=== PATIENT | female | born 2000 | race Two or more races ===

== ENCOUNTER 2024-05-12 11:20 | Outpatient (REF) | payer SELFPAY ==
[2024-05-12 13:46] LABS: MANUAL DIFF FLAG NO
[2024-05-12 14:04] LABS: Basophils Absolute Auto 0.1 X10*3/uL (0.0-0.2); Basophils Percent Auto 0.8 % (0-2); Eosinophils Percent Auto 0.3 % (0-4); Hemoglobin 12.9 g/dl (12.0-16.0); Imm Gran Abs Auto 0.01 X10*3/uL (0.00-0.03); Imm Gran Pct Auto 0.1 % (0.0-0.4); Lymphocytes Absolute Auto 1.9 X10*3/uL (1.2-4.9); Lymphocytes Percent Auto 25.4 % (20-40); Mean Corpuscular HGB Conc 33.1 g/dl (31.0-35.0); Mean Corpuscular Hemoglobin 29.8 pg (27.0-33.0); Mean Corpuscular Volume 90.1 fL (80.0-98.0); Monocytes Absolute Auto 0.5 X10*3/uL (0.1-1.2); Monocytes Percent Auto 6.3 % (2-11); Neutrophils Absolute Auto 5.1 x10*3/uL (2.0-8.3); Neutrophils Percent Auto 67.1 % (45-73); Platelet Count 225 X10*3/uL (160-400); Red Blood Count 4.33 X10*6/uL (4.20-5.50); Red Cell Distribution Width 11.9 % (11.0-16.0); White Blood Count 7.5 X10*3/uL (4.8-10.8)
[2024-05-12 15:22] LABS: Alanine Aminotransferase 15 U/L (0-31); Albumin Level 4.2 g/dL (3.5-5.0); Alkaline Phosphatase 62 U/L (39-117); Anion Gap 11 (12-20); Aspartate Amino Transferase 20 U/L (5-31); Bilirubin Total 0.4 mg/dL (0.0-1.0); Blood Urea Nitrogen 12 mg/dL (9-16); Calcium 9.4 mg/dL (8.4-10.2); Carbon Dioxide 26 mmol/L (22-29); Chloride 107 mmol/L (96-108); Cholesterol 161 mg/dL (<200); Estimated Glomerular Filt Rate > 60; Glucose Random 91 mg/dL (60-115); HDL Cholesterol 49 mg/dL (>40); LDL Cholesterol Calculated 85 mg/dL (<100); Potassium 3.6 mmol/L (3.3-5.1); Sodium 140 mmol/L (135-145); TSH reflex Free T4 3.08 uIU/mL (0.32-4.0); Total Protein 7.6 g/dL (6.5-8.0); Triglycerides 138 mg/dL (<150); Vitamin D 25-OH Total 24.5 ng/mL (>30)
[2024-05-12 21:38] LABS: Estimated Average Glucose 100 mg/dL; Hemoglobin A1C 99.8378 umol/L; Hemoglobin A1c % 5.1 % (<6.0)
[2024-05-13 05:08] LABS: HIV AB/AG Nonreactive (Nonreactive); HIV Num 1 0.06 S/CO (0.00-0.99); ~HepC Num1 0.27 S/CO (0.00-0.79); ~Hepatitis C Antibody Nonreactive (Nonreactive)
--- OUTSIDE RECORDS SUMMARY | 2024-05-19 13:25 | XMS_ITS | Continuity of Care Document ---
Author Organization [employer] Address [address] [place] [address] Care Team Providers Care Traffic Workforce Representative Name Role Phone Jenni Cruz Unavailable Unavailable Allergies, Adverse Reactions, Alerts Substance Reaction Status Criticality No Known Allergies Active No Inform ation Medications Medication Instructions Dosage Effective Dates (start - stop) Status Comments Vitamin B-6 25 mg tablet Take 1 tab q8 hrs PRN for nause trying to combine times w Unisom - Active Unisom (doxylamine) 25 mg tablet Take 1 tablet q 12 hrs PRN for nausea - Active One Daily 27 mg iron-800 mcg tablet take 1 tablet by oral route every day 1 tablet - Active Mirena 20 mcg/24 hours (8 [...] AMP PROB Intake URINE TEST OFFICE/OUTPATIENT VISIT, [facility] Advance Directives Directive Yes / No Effective Date File Name No Information Encounters Encounter Description Practice Location Reason(s) For Visit Diagnoses Date Provider Providers Copied on Encounter [facility], [address] [place], [id number], [place] [facility] check (chief complaint) Encounter for test, result negativeIUD (intrauterine device) in placeEncounter for visitSVD (spontaneous vaginal delivery) 3 Mp Arteaga. [address] [facility], [place], [id number], [place]. tel:[phone] OFFICE/OUTPA TIENT VISIT, EST [facility], [address] [place], [id number], [place] [facility] IUD CHECK (chief complaint) Encounter for routine checking of intrauterine contraceptive device (IUD) 3 Dilia Ellis. [address] [facility], [place], [id number], [place]. tel:[phone] [facility], [address], [place], [id number], [place] [facility] Inpt No Information 3 Radha Vicente. [address] [facility], [address], [place], [id number], [place]. tel:[phone] OFFICE/OUTPA TIENT VISIT, [facility], [address], [place], [id number], [place] [facility] Encounter for supervision of normal first , third trimester 3 Mp Arteaga. [address] [facility], [place], [id number], [place]. tel:[phone] OFFICE/OUTPA TIENT VISIT, [facility], [address], [place], [id number], [place] [facility] routine (chief complaint) Encounter for supervision of normal first , third trimesterEncount er for other contraceptive management 3 Mp Arteaga. [address] [facility], [place], [id number], [place]. tel:[phone] OFFICE/OUTPA TIENT VISIT, [facility], [address], [place], [id number], [place] [facility] routine (chief complaint) Encounter for immunizationEnco unter for supervision of normal first , third trimester 3 Dilia Ellis. [address] [facility], [place], [id number], [place]. tel:[phone] OFFICE/OUTPA TIENT VISIT, [facility], [address], [place], [id number], [place] [facility] care in third trimesterEncount er for supervision of normal , unspecified, second trimester Mar-2 3 Tawanna Aguilar. [address] [facility], [place], [id number], [place]. tel:[phone] OFFICE/OUTPA TIENT VISIT, [facility], [address], [place], [id number], [place] [facility] routine (chief complaint) Encounter for supervision of normal first , unspecified trimesterPrenata l care in second trimester 3 Nida Montanez. [address] [facility], [facility] [address], [place], [place], [id number], [place]. tel:[phone] OFFICE/OUTPA TIENT VISIT, [facility], [address], [place], [id number], [place] [facility] routine (chief complaint) Encounter for supervision of normal first , unspecified trimester 3 Nida Montanez. [address] [facility], [place] [address], [place], [id number], [place]. tel:[phone] OFFICE/OUTPA TIENT VISIT, [facility], [address], [place], [id number], [place] [facility] Encounter for supervision of normal first , unspecified trimester 3 Tawanna Aguilar. [address] [facility], [place], [id number], [place]. tel:[phone] OFFICE/OUTPA TIENT VISIT, [facility], [address], [place], [id number], [place] [facility] care, first trimester 2 Tawanna Aguilar. [address] [facility], [place], [id number], [place]. tel:[phone] [facility], [address], [place], [phone], [place] [facility] New Ob Initial Visit (chief complaint) Encounter for test, result positiveEncounte r for supervision of normal first in first trimester 2 Jered Mcqueen. [address] [facility], [place], [address], [place]. tel:[phone] OFFICE/OUTPA TIENT VISIT, [facility], [address] [place] [address], [place], [id number], [place] [facility] Adult test (chief complaint) Encounter for test, result positive 2 Dipti Castillo. [address] [facility], [place], [id number], [place]. 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 Reason For Referral Reason For Referral No Information Plan Of Treatment Date Type Action Status Goal Unhealthy drug u se screening. Due on due Goal HIV Screen. Due on due Goal PAP. Due on due Goal Tdap due Goal HPV (1st). Due on due Goal Influenza Vaccin e. Due on due Goal Hepatitis C anti body. Due on due Goal LINK WIRE FABRIC MACHINE OPERATOR exam. Due on due Goal HIV Consented. Due on due Goal Depression scree flaquito. Due on due Goal Hepatitis C scre ening. Due on due Goal HIV Consented. Due on due Goal LINK WIRE FABRIC MACHINE OPERATOR exam. Due on due Goal HPV (1st). Due on due Goal Unhealthy drug u se screening. Due on due Goal HIV Screen. Due on due Goal Hepatitis C anti body. Due on due Goal Depression scree flaquito. Due on due Goal Tdap due Goal Hepatitis C scre ening. Due on due Goal PAP. Due on due Goal Depression scree flaquito. Due on due Goal Hepatitis C anti body. Due on due Goal LINK WIRE FABRIC MACHINE OPERATOR exam. Due on due Goal PAP. Due on due Goal HIV Screen. Due on due Goal Unhealthy drug u se screening. Due on due Goal Tdap due Goal HPV (). Due on due Goal HIV Consented. Due on due Goal Hepatitis C scre ening. Due on due Goal Depression scree flaquito. Due on due Goal HIV Consented. Due on due Goal Tdap due Goal Hepatitis C scre ening. Due on due Goal PAP. Due on due Goal LINK WIRE FABRIC MACHINE OPERATOR exam. Due on due Goal Hepatitis C anti body. Due on due Goal Unhealthy drug u se screening. Due on due Goal HIV Screen. Due on due Goal HPV (). Due on due Goal Depression scree flaquito. Due on due Goal HIV Consented. Due on due Goal Unhealthy drug u se screening. Due on due Goal HPV (1st). Due on due Goal LINK WIRE FABRIC MACHINE OPERATOR exam. Due on due Goal Hepatitis C scre ening. Due on due Goal Tdap due Goal PAP. Due on due Goal Hepatitis C anti body. Due on due Goal HIV Screen. Due on due Goal Tdap. Due on due Goal HIV Consented. Due on due Goal HPV (). Due on due Goal PAP. Due on due Goal Hepatitis C anti body. Due on due Goal HIV Screen. Due on due Goal Hepatitis C scre ening. Due on due Goal Unhealthy drug u se screening. Due on due Goal LINK WIRE FABRIC MACHINE OPERATOR exam. Due on due Goal Depression scree flaquito. Due on due Goal Hepatitis C scre ening. Due on due Goal HIV Screen. Due on due Goal Hepatitis C anti body. Due on due Goal HIV Consented. Due on due Goal Tdap. Due on due Goal Depression scree flaquito. Due on due Goal LINK WIRE FABRIC MACHINE OPERATOR exam. Due on due Goal PAP. Due on due Goal HPV (). Due on due Goal Unhealthy drug u se screening. Due on due Goal Unhealthy drug u se screening. Due on due Goal Hepatitis C scre ening. Due on due Goal Depression scree flaquito. Due on due Goal PAP. Due on due Goal HIV Consented. Due on due Goal Hepatitis C anti body. Due on due Goal HIV Screen. Due on due Goal HPV (1st). Due on due Goal LINK WIRE FABRIC MACHINE OPERATOR exam. Due on due Goal Tdap. Due on due Goal LINK WIRE FABRIC MACHINE OPERATOR exam. Due on due Goal Colonoscopy. Due on 023 due Goal Unhealthy drug u se screening. Due on due Goal PAP. Due on due Goal Depression scree flaquito. Due on due Goal CT-Colonography. Due on due Goal HIV Screen. Due on due Goal Tdap. Due on due Goal HPV (). Due on due Goal FOBT. Due on due Goal HIV Consented. Due on due Goal FIT. Due on due Goal Hepatitis C scre ening. Due on due Goal FIT-DNA. Due on due Goal HIV Screen. Due on due Goal Unhealthy drug u se screening. Due on due Goal HIV Consented. Due on due Goal FOBT. Due on due Goal CT-Colonography. Due on due Goal Tdap. Due on due Goal Hepatitis C scre ening. Due on due Goal Depression scree flaquito. Due on due Goal FIT-DNA. Due on due Goal HPV (). Due on due Goal PAP. Due on due Goal FIT. Due on due Goal Colonoscopy. Due on due Goal LINK WIRE FABRIC MACHINE OPERATOR exam. Due on due Goal CT-Colonography. Due on due Goal FOBT. Due on due Goal HIV Consented. Due on due Goal Unhealthy drug u se screening. Due on due Goal FIT-DNA. Due on due Goal LINK WIRE FABRIC MACHINE OPERATOR exam. Due on due Goal Hepatitis C scre ening. Due on due Goal Colonoscopy. Due on due Goal Depression scree flaquito. Due on due Goal HPV (1st). Due on due Goal Tdap. Due on due Goal FIT. Due on due Goal PAP. Due on due Goal Hepatitis C scre ening. Due on due Goal LINK WIRE FABRIC MACHINE OPERATOR exam. Due on due Goal Depression scree flaquito. Due on due Goal Colonoscopy. Due on [address]-Colonography. Due on due Goal HIV Screen. Due on 22 due Goal FIT. Due on due Goal PAP. Due on due Goal HIV Consented. Due on due Goal FIT-DNA. Due on due Goal FOBT. Due on due Goal Tdap. Due on due Goal HPV (). Due on due Goal Unhealthy drug u se screening. Due on due Goal Influenza Vaccin e. Due on due Referral Ordered: OB US > OR = TO 14 WKS, SNGL FETUS ordered Referral Ordered: OB US NUCHAL MALISSA, FIRST TRIMESTER SINGLE ordered Patient Education Learning About Pregnanc y completed Future Order: Radiology Order OB US > OR = TO 14 WKS, SNGL FETUS ([id number]), Added on: New Future Order: Lab Order Panorama Test (NPT), Collected on: , Sent on: Sent Future Order: Radiology Order OB US NUCHAL MALISSA, FIRST TRIMESTER SINGLE ([id number]), Added on: New Future Order: Radiology Order OB US NUCHAL MALISSA, FIRST TRIMESTER SINGLE ([id number]), Added on: New Future Order: Lab Order Antibody Screen ([id number]), Appointment on: , Sent on: Sent Future Order: Lab Order Type and Screen ([id number]), Appointment on: , Sent on: Sent Future Order: Lab Order Hep B Simpson rface Ag ([id number]), Appointment on: , Sent on: Sent Future Order: Lab Order RPR, Rfx Qn RPR/Confirm TP-PA ([id number]), Appointment on: , Sent on: Sent Future Order: Lab Order CBC ([id number]), Appointment on: , Sent on: Sent Future Order: Lab Order HIV Scre en ([id number]), Appointment on: , Sent on: Sent Future Order: Lab Order Varicell a-Zoster Ab, IgG ([id number]), Appointment on: , Sent on: Sent Future Order: Lab Order HGB Elec trophoresis ([id number]), Appointment on: , Sent on: Sent Future Order: Lab Order Rubella Immunity ([id number]), Appointment on: , Sent on: Sent History [...] well, she denies depressions/p Mirena placement @ [facility] UTD and WNL. IUD CHECK 10/21/2022, d oing well. No complications w/ delivery. Had Mirena placed PP. Requesting for strings to be trimmed. routine Apr-05-2023 routine routine routine New Ob Initial Visit test LMP was 02/09/20 22. Client was not taking control pills at or around the time of her LMP. Context: not confirmed by testing. This is first . Pertinent negatives include nausea, spotting, urinary difficulty, vaginal discharge, vomiting. Functional Status Date Functional Assessmen t Pain Score 0/10 Instructions Date Instruction Additional Infor mation denies PMH, no meds, not on contraceptionstart vitaminsdo not forget to drink water and restGYN appointment Related to Encounter for test, result positive Assessments Type Assessment Date assessment Encounter for test, re sult negative assessment IUD (intrauterine device) in mat ce assessment Encounter for visit J assessment (spontaneous vaginal deliver y) Mental Status Date Cognitive Assessment Orientation - [place] ed to time, place, person, situation. Patient Care Teams Name Effective Dates (start - stop) Status Members No Information
== END 2024-05-12 11:21 | disposition home or self-care (01) ==
LOC: HO.HHCL 11:20
PROVIDERS: Visit Provider Internal Medicine
DX: F41.8 Other specified anxiety disorders (principal)
CPT/HCPCS: 36415; 80053; 80061; 82306; 83036; 84443; 85025; 86803; 87389

== ENCOUNTER 2024-08-05 | Outpatient (REF) | payer SELFPAY ==
--- OUTSIDE RECORDS SUMMARY | 2024-08-19 14:34 | XMS_ITS | Encounter Summary ---
Author Organization [employer] Address [address] [place] [address] Care Team Providers Care Whizzer Hand Name Role Phone Anna No MD [...] documented as of this encounter Care Teams Whizzer Hand Relationship Specialty Start Date End Date Anna No MD [address] [place] [address] PCP - General Internal Medicine 05/12/24 documented as of this encounter
--- OUTSIDE RECORDS SUMMARY | 2024-08-19 14:34 | XMS_ITS | Encounter Summary ---
Author Organization [employer] Address [address] [place] [address] Care Team Providers Care Furniture Cleaner Name Role Phone Anna No MD Primary Care Provide r Reason for Visit * Reason Onset Date Comments Med Refill 08/13/2024 Encounter Details Date Type Department Care Team ([facility] st Contact Info) Description 08/13/2024 Refill [facility] [address] [place] [address] Anna No MD [address] [place] [address] Anxiety with depression Social History Tobacco Use [...] documented as of this encounter Care Teams Furniture Cleaner Relationship Specialty Start Date End Date Anna No MD [address] [place] [address] PCP - General Internal Medicine 05/12/24 documented as of this encounter
--- OUTSIDE RECORDS SUMMARY | 2024-08-19 14:34 | XMS_ITS | Encounter Summary ---
Author Organization [employer] Address [address] [facility] [address] [place] [address] Care Team Providers Care Juvenile Correctional Officer Name Role Phone Anna No MD Primary Care Provide r Reason for Visit * Reason Onset Date Comments Med Refill 08/05/2024 Encounter Details Date Type Department Care Team ([facility] st Contact Info) Description 08/05/2024 Refill [facility] MEDICINE [address] [place] [address] Anna No MD [address] [place] [address] Anxiety with depression Social History Tobacco Use [...] documented as of this encounter Care Teams Juvenile Correctional Officer Relationship Specialty Start Date End Date Anna No MD [address] [place] [address] PCP - General Internal Medicine 05/12/24 documented as of this encounter
--- OUTSIDE RECORDS SUMMARY | 2024-08-19 14:34 | XMS_ITS | Encounter Summary ---
Author Organization [employer] Address [address] [facility] [address] [place] [address] Care Team Providers Care Credit Director Name Role Phone Anna No MD Primary [...] documented as of this encounter Care Teams Credit Director Relationship Specialty Start Date End Date Anna No MD [address] [place] [address] PCP - General Internal Medicine 05/12/24 documented as of this encounter
--- OUTSIDE RECORDS SUMMARY | 2024-08-19 14:34 | XMS_ITS | Clinical Summary ---
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 30 tablet 1 06/17/19 25 025 Discontinued(Re order (will not trigger notification to Pharmacy)) hydrOXYzine HCl (Atarax) 25 MG tabletIndicati ons:Anxiety with depression TAKE 1 TABLET BY MOUTH EVERY 8 HOURS NEEDED FORE ITCHING FOR UP TO 20 DAYS 30 tablet 1 08/05/19 25 025 Discontinued(Re order (will not trigger [...] & Plan (05/13/2024 4:46 PM EST): Pending Pumping Supervisor referral Pelvic pain 05/13/2024 Assessment & Plan (05/13/2024 4:44 PM EST): Pumping Supervisor referral will be on hod until her insurance is fix Cervical cancer screening 05/13/2024 Encounters * This document contains information received from the source organization and may not represent a complete record from that organization. Date Type Department Care Team Description 08/18/[address] [address] Sam Rod CNM Lab Orders 08/13/[address] [address] Anna No MD Anxiety with depression 08/05/2024 11:00 AM EST Procedure Visit [address] [address] Sam Rod CNM Cervical cancer screening (Primary Dx); Checking of intrauterine device; Screening examination for venereal disease 08/05/2024 Travel 08/05/[address] [address] Anna No MD Anxiety with depression 07/29/2024 Travel 07/01/2024 11:15 AM EST Telemedicine [address] [address] Anna No MD Anxiety with depression (Primary Dx); IUD check up; Cervical cancer screening 07/01/2024 Travel 06/17/2024 Orders Only [address] [address] Anna No MD Anxiety with depression 06/10/2024 Travel from Last 3 Months Family History Medical [...] of 3 - 19+ 3-dose series) 11/17/2018 COVID-19 Vaccine ( - 2023-2 5 season) 2024 Influenza Vaccine (#1) 2024 Depression Monitoring (PHQ-9) 12/15/2024, 06/17/2024 SDOH Screening 04/28/2025 04/28/2024 Alcohol/Substance Use Screening 05/12/2025 05/12/2024 Depression Screening 06/17/2025 06/17/2024, 06/17/2024 Family Planning (PISQ) 08/05/2025 08/05/2024 Tobacco Screening 08/05/2025 08/05/2024 Pap Smear 08/05/2027 08/05/2024 Zoster Vaccines (1 of 2) 11/17/2049 [...] Procedure Name Priority Date/Time Associated Diagnosis Comments HEPATITIS B SURFACE ANTIGEN, EIA Routine 08/05/2024 12:28 PM EST Screening examination for venereal disease HEPATITIS B SURFACE ANTIBODY, QUALITATIVE Routine 08/05/2024 12:28 PM EST Screening examination for venereal disease HEPATITIS B CORE AB TOTAL Routine 08/05/2024 12:28 PM EST Screening examination for venereal disease SYPHILIS SCREEN Routine 08/05/2024 12:25 PM EST Screening examination for venereal disease DRUG MONITOR, PANEL 1, SCREEN, URINE Routine 08/05/2024 12:25 PM EST Anxiety with depression CHLAMYDIA/N. GONORRHOEAE AND T. VAGINALIS RNA, QUAL,TMA Routine 08/05/2024 11:23 AM EST Screening examination for venereal disease PAP SMEAR Routine 08/05/2024 12:00 AM EST Cervical cancer screening HEPATITIS C AB W/REFL TO HCV RNA, QN, PCR Routine 05/12/2024 11:24 AM EST Anxiety with depression HIV 1/2 ANTIGEN/ANTIBODY, FOURTH GENERATION W/RFL Routine 05/12/2024 11:24 AM EST Anxiety with depression from Last 3 Months or Most Recently Relevant to Health Maintenance Results * Hepatitis B surface antigen, EIA (08/05/2024 12:28 PM EST) Hepatitis B Surface Ag Negative Negative [facility] Blood Venous blood specimen / Unknown 08/05/2024 12:28 PM EST 08/05/2024 1:38 PM EST us Sam MILLS LAB BLOOD ORDERABLES Agatha rosetta Result [facility] [address] [place] [phone] * Hepatitis B Core Antibody, Total (08/05/2024 12:28 PM EST) Pathologist [facility] Hepatitis B Core Antibody Nonreactive Nonreactive [facility] Blood Venous blood specimen / Unknown 08/05/2024 12:28 PM EST 08/05/2024 1:38 PM EST [facility] LAB BLOOD ORDERABLES Agatha l Result Performing Organization Address City/[facility]/ZIP Co de Phone Number [facility] [address] [place] [phone] * Hepatitis B Surface Antibody, Qualitative (08/05/2024 12:28 PM EST) Pathologist [facility] ~Hepatitis B Surface Antibody REACTIVE Nonreactive [facility] Comment:REACTIVE: > 11.99 mI U/mL Blood Venous blood specimen / Unknown 08/05/2024 12:28 PM EST 08/05/2024 1:38 PM EST [facility] LAB BLOOD ORDERABLES Agatha l Result Performing Organization Address [facility] Co de Phone Number [facility] [address] [place] [phone] * Syphilis Screen (08/05/2024 12:25 PM EST) [facility] Syphilis Screen Nonreactive Nonreactive [facility] Blood Venous blood specimen / Unknown 08/05/2024 12:25 PM EST 08/05/2024 1:38 PM EST [facility] LAB BLOOD ORDERABLES Agatha l Result Performing Organization Address City/[facility]/ZIP Co de Phone Number [facility] [address] [place] [phone] * Drug Monitoring, Panel 1, Screen, Urine (08/05/2024 12:25 PM EST) Opiate Screen Urine Not Detected Not Detect [facility] Comment:Opiate cut-off is 30 0 ng/mL.Positive results are unconfirmed and should not be used fornon-medical purposes. Barbiturates, Urine Not Detected Not Detect [facility] Comment:Barbiturate cut-off is 200 ng/mL.Positive results are unconfirmed and should not be used fornon-medical purposes. Phencyclidine Screen Urine Not Detected Not Detect [facility] Comment:Phencyclidine cut-of f is 25 ng/mL.Positive results are unconfirmed and should not be used fornon-medical purposes. Amphetamine Screen Urine Not Detected Not Detect [facility] Comment:Amphetamine cut-off is 1000 ng/mL.Positive results are unconfirmed and should not be used fornon-medical purposes. Benzodiazepines Screen Urine Not Detected Not Detect [facility] Comment:Benzodiazepine cut-o ff is 200 ng/mL.Positive results are unconfirmed and should not be used fornon-medical purposes. Cocaine Screen Urine Not Detected Not Detect [facility] Comment:Cocaine cut-off is 3 00 ng/mL.Positive results are unconfirmed and should not be used fornon-medical purposes. Cannabinoid Screen Urine Not Detected Not Detect [facility] Comment:Cannabinoid cut-off is 50 ng/mL.Positive results are unconfirmed and should not be used fornon-medical purposes. Methadone Screen, Urine Not Detected Not Detect ng/mL [facility] Comment:Methadone cut-off is 300 ng/mL.Positive results are unconfirmed and should not be used fornon-medical purposes. FENTANYL URINE Not Detected Not Detect [facility] Comment:Fentanyl cut-off is 1 ng/mL.Positive results are unconfirmed and should not be used fornon-medical purposes. Oxycodone Urine Screen Not Detected Not Detect ng/mL [facility] Comment:Oxycodone cut-off is 100 ng/mL.Positive results are unconfirmed and should not be used fornon-medical purposes. Buprenorphine Screen Not Detected Not Detect ng/mL [facility] Comment:Buprenorphine cut-of f is 5 ng/mL.Positive results are unconfirmed and should not be used fornon-medical purposes. Urine (Urine, Random) 08/05/2024 12:25 PM EST 08/05/2024 1:20 PM EST Tai Santiagor PMHNP LAB URINE ORDERABLES Final Re sult [facility] [address] [place] [address] [phone] * STI testing add on (NG, CT, Trich) (08/05/2024 11:23 AM EST) Trichomonas (NAAT) NOT DETECTED [facility] Comment:REFERENCE RANGE: NOT DETECTEDThe analytical performance characteristics of thisassay, when used to test SurePath(TM) specimens have beendetermined by [employer]. The modifications havenot been cleared or approved by the FDA. This assay hasbeen validated pursuant to the CLIA regulations and isused for clinical purposes.For additional information, please refer tohttps://education.GainSpan/faq/AGU901(This link is being provided for information/educational purposes only.)For additional information, please refer tohttp://education.GainSpan/faq/Trichomonastma(This link is being provided for informational/educational purposes only.)THIS TEST PERFORMED AT:[employer] [address] [phone] DIRECTOR: CHAYO WOOTEN MD CTNG Ref Lab NOT DETECTED NOT DETECTED [facility] NG Ref Lab NOT DETECTED NOT DETECTED [facility] ThinPrep?? vial Cervix uteri structure / Unknown 08/05/2024 11:23 AM EST 08/05/2024 4:28 PM EST Narrative [facility] - 08/14/2024 1:14 PM EST Collection Date: [id number] by: BUDDY Espinal: Cervix Sam MILLS LAB CYTOLOGY ORDERABLES F inal Result [facility] [address] [place] [address] [phone] * Pap Smear (08/05/2024 12:00 AM EST) Swab Cervix uteri structure / Unknown 08/05/2024 08/06/2024 8:10 AM EST Narrative [facility] - 08/19/2024 1:58 PM EDT ----- ------- Name: Craig Power ? Age/Sex: 23/F ? : 2000 Unit#: [id number] ?? Attend Dr: SAM ROD CNM ?Re08/05/24 ?Status: REG REF ? Location: HO.LNP ?Disch: ? ----- ------- SPEC : [id number] ? RECD: 08/06/24-809 ? STATUS: ??SOUT ? REQ NUM: [id number] ? ANNAMARIE: 08/05/24-0000 ? SUBM DR: SAM ROD CNM ? ENTERED: ??08/06/24-829 ?SP TYPE: Pap Smr ?OTHR : ? ORDERED: ??Pap Smear ? Interpretation ?? Satisfactory for evaluation. ?? Negative for intraepithelial lesion or malignancy. ?Clinical Information LMP: IUD Previous PAP test: Other surgery: Other history: ? Material Received ?? ThinPrep-Cervical ----- ------- Signed (signature on file) STEVEN Joyce (ASCP) 08/19/24 1346 ? ----- ------- ? END OF REPORT ? Sam MILLS LAB CYTOLOGY ORDERABLES F inal Result Performing Organization Address [facility]/ZIP Co de Phone Number [facility] [address] [place] [address] [phone] * Hepatitis C Antibody with Reflex to HCV, RNA, Quantitative, Real-Time PCR (05/12/2024 11:24 AM EST) Hepatitis C Antibody Nonreactive Nonreactive [facility] Comment:Antibodies to HCV no t detected; does not exclude early acuteHCV infection. Blood Venous blood specimen / Unknown 05/12/2024 11:24 AM EST 05/12/2024 2:31 PM EST us Anna Castro MD LAB BLOOD ORDERABLES Final Result Performing Organization Address [facility] Co de Phone Number [facility] [address] [place] [address] [phone] * HIV-1/2 Antigen and Antibodies, Fourth Generation, with Reflexes (05/12/2024 11:24 AM EST) HIV AB/AG Nonreactive Nonreactive [facility] Comment:HIV-1 p24 Ag and/or HIV-1/HIV-2 Ab not detected.A test result that is nonreactive does not exclude thepossibility of exposure to or infection with HIV-1 and/orHIV-2. Nonreactive results in this assay for individualswith prior exposure to HIV-1 and/or HIV-2 may be due toantigen and antibody levels that are below the limit ofdetection of this assay.The [employer] HIV Ag/Ab Combo assay result andsupplemental assay results should be interpreted inconjunction with the patient's clinical presentation,history and other laboratory results. If the results areinconsistent with clinical evidence, additional testing issuggested to confirm the result. Blood Venous blood specimen / Unknown 05/12/2024 11:24 AM EST 05/12/2024 2:31 PM EST Anna Castro MD LAB BLOOD ORDERABLES Final Result [facility] [address] [place] [address] [phone] from Last 3 Months or Most Recently Relevant to Health Maintenance Insurance [facility] [employer] Care Teams Grain Drier Operator Relationship Specialty Start Date End Date Anna No MD [address] [place] [phone] PCP - General Internal Medicine 05/12/24
--- OUTSIDE RECORDS SUMMARY | 2024-08-19 14:34 | XMS_ITS | Encounter Summary ---
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 Physical Exam Exam conducted with a pre press proofer present (Sam Rod CNM). Constitutional: Appearance: Normal appearance. Genitourinary: General: [...] get vaccine records from previous provider in [place]. documented in this encounter Miscellaneous Notes * Result Encounter Note - Sam Rod CNM - 08/05/2024 11:00 AM EST Pap still pending from 08/05. Could you please followup with lab to get status? Thanks! documented in this encounter Plan of Treatment Not on file documented as of this encounter Procedures Procedure Name Priority Date/Time Associated Diagnosis [...] PM EST Screening examination for venereal disease CHLAMYDIA/N. GONORRHOEAE AND T. VAGINALIS RNA, QUAL,TMA Routine 08/05/2024 11:23 AM EST Screening examination for venereal disease PAP SMEAR Routine 08/05/2024 12:00 AM EST Cervical cancer screening documented in this encounter Results * Hepatitis B surface antigen, EIA (08/05/2024 12:28 PM EST) Hepatitis B Surface Ag Negative Negative [facility] Blood Venous blood specimen / Unknown 08/05/2024 12:28 PM EST 08/05/2024 1:38 PM EST Sam Rod [facility] LAB BLOOD ORDERABLES Agatha l Result Performing Organization Address [facility] de Phone Number [facility] [address] [place] [phone] * Hepatitis B Surface Antibody, Qualitative (08/05/2024 12:28 PM EST) ~Hepatitis B Surface Antibody REACTIVE Nonreactive [facility] Comment:REACTIVE: > 11.99 mI U/mL Blood Venous blood specimen / Unknown 08/05/2024 12:28 PM EST 08/05/2024 1:38 PM EST [facility] LAB BLOOD ORDERABLES Agatha l Result Performing Organization Address [facility] [address] [place] [phone] * Hepatitis B Core Antibody, Total (08/05/2024 12:28 PM EST) Pathologist [facility] Hepatitis B Core Antibody Nonreactive Nonreactive [facility] Blood Venous blood specimen / Unknown 08/05/2024 12:28 PM EST 08/05/2024 1:38 PM EST [facility] LAB BLOOD ORDERABLES Agatha l Result Performing Organization Address [facility] Co de Phone Number [facility] [address] [place] [phone] * Syphilis Screen (08/05/2024 12:25 PM EST) Pathologist [facility] Syphilis Screen Nonreactive Nonreactive [facility] Blood Venous blood specimen / Unknown 08/05/2024 12:25 PM EST 08/05/2024 1:38 PM EST [facility] Ruth M[facility] LAB BLOOD ORDERABLES Agatha l Result Performing Organization Address [facility]/ZIP Co de Phone Number [facility] [address] [place] [address] [phone] * STI testing add on (NG, CT, Trich) (08/05/2024 11:23 AM EST) Trichomonas (NAAT) NOT DETECTED [facility] Comment:REFERENCE RANGE: NOT DETECTEDThe analytical performance characteristics of thisassay, when used to test SurePath(TM) specimens have beendetermined by [employer]. The modifications havenot been cleared or approved by the FDA. This assay hasbeen validated pursuant to the CLIA regulations and isused for clinical purposes.For additional information, please refer tohttps://[employer]ITIONRX.Ecowell/faq/DDP404(This link is being provided for information/educational purposes only.)For additional information, please refer tohttp://[employer].Ecowell/faq/Trichomonastma(This link is being provided for informational/educational purposes only.)THIS TEST PERFORMED AT:[employer] [address] [phone] DIRECTOR: CHAYO WOOTEN MD CTNG Ref Lab NOT DETECTED NOT DETECTED [facility] NG Ref Lab NOT DETECTED NOT DETECTED [facility] ThinPrep?? vial Cervix uteri structure / Unknown 08/05/2024 11:23 AM EST 08/05/2024 4:28 PM EST Narrative [facility] - 08/14/2024 1:14 PM EST Collection Date: [id number] by: BUDDY Espinal: Cervix Sam Rod CNM LAB CYTOLOGY ORDERABLES F inal Result Performing Organization Address City/[facility]/ZIP Co de Phone Number [facility] [address] [place] [address] [phone] * Pap Smear (08/05/2024 12:00 AM EST) Swab Cervix uteri structure / Unknown 08/05/2024 08/06/2024 8:10 AM EST Luis Eduardo [facility] - 08/19/2024 1:58 PM EDT ----- ------- Name: Craig Power ? Age/Sex: ? : 2000 Unit#: [id number] ?? Attend Dr: SAM ROD CNM ?Re08/05/24 ?Status: REG REF ? Location: HO.LNP ?Disch: ? ----- ------- SPEC : [id number] ? RECD: 08/06/24 ? STATUS: ??SOUT ? REQ NUM: [id number] ? ANNAMARIE: 08/05/24- ? SUBM DR: SAM ROD CNM ? ENTERED: ??08/06/24-829 ?SP TYPE: Pap Smr ?OTHR : ? ORDERED: ??Pap Smear ? Interpretation ?? Satisfactory for evaluation. ?? Negative for intraepithelial lesion or malignancy. ?Clinical Information LMP: IUD Previous PAP test: Other surgery: Other history: ? Material Received ?? ThinPrep-Cervical ----- ------- Signed (signature on file) STEVEN Joyce (ASCP) 08/19/24 7929 ? ----- ------- ? END OF REPORT ? us Sam MILLS LAB CYTOLOGY ORDERABLES F inal Result [facility] [address] [place] [phone] [phone] documented in this encounter Visit Diagnoses Diagnosis Cervical cancer screening- Primary Screening for malignant neoplasm of the cervix Checking of intrauterine device Screening examination for venereal disease documented in this encounter Additional Health Concerns Assessment Noted Time PHQ-9 Depression Total Score: 10 025 12:15 PM EST documented as of this encounter Care Teams Chain Forming Machine Operator Relationship Specialty Start Date End Date Anna No MD [address] [place] [phone] PCP - General Internal Medicine 05/12/24 documented as of this encounter
--- OUTSIDE RECORDS SUMMARY | 2024-08-19 14:34 | XMS_ITS | Continuity of Care Document ---
Author Organization [employer] Address [address] [place] [address] Care Team Providers Care Payroll Machine Operator Name Role Phone Jenni Cruz Unavailable Unavailable [...] AMP PROB Intake URINE TEST OFFICE/OUTPATIENT VISIT, [facility] Advance Directives Directive Yes / No Effective Date File Name No Information Encounters Encounter Description Practice Location Reason(s) For Visit Diagnoses Date Provider Providers Copied on Encounter [facility], [address] [place], [id number], [place] [facility] check (chief complaint) Encounter for test, result negativeIUD (intrauterine device) in placeEncounter for visitSVD (spontaneous vaginal delivery) 3 Mp Arteaga. [address] [facility], [place], [id number], [place]. tel:[phone] OFFICE/OUTPA TIENT VISIT, EST [facility], [address] [place], [id number], [place] [facility] IUD CHECK (chief complaint) Encounter for routine checking of intrauterine contraceptive device (IUD) 3 Dilia Ellis. [address] [facility], [place], [id number], [place]. tel:[phone] [facility], [address], [place], [id number], [place] [facility] Inpt No Information 3 Radha Vicente. [address] [facility], [place], [id number], [place]. tel:[phone] OFFICE/OUTPA TIENT VISIT, [facility], [address], [place], [id number], [place] [facility] Encounter for supervision of normal first , third trimester 3 Mp Arteaga. [address] [facility], [place], [id number], [place]. tel:[phone] OFFICE/OUTPA TIENT VISIT, [facility], [address], [place], [id number], [place] [facility] routine (chief complaint) Encounter for supervision of normal first , third trimesterEncount er for other contraceptive management 3 Mp Arteaga. [address] [facility], [place], [id number], [place]. tel:[phone] OFFICE/OUTPA TIENT VISIT, [facility], [address], [place], [id number], [place] [facility] routine (chief complaint) Encounter for immunizationEnco unter for supervision of normal first , third trimester 3 Dilia Ellis. [address] [facility], [place], [id number], [place]. tel:[phone] OFFICE/OUTPA TIENT VISIT, [facility], [address], [place], [id number], [place] [facility] care in third trimesterEncount er for supervision of normal , unspecified, second trimester Mar-2 3 Tawanna Aguilar. [address] [facility], [place], [id number], [place]. tel:[phone] OFFICE/OUTPA TIENT VISIT, [facility], [address], [place], [phone], [place] [facility] routine (chief complaint) Encounter for supervision of normal first , unspecified trimesterPrenata l care in second trimester 3 Nida Montanez. [address] [facility], [facility] [address], [place], [place], [id number], [place]. tel:[phone] OFFICE/OUTPA TIENT VISIT, [facility], [address], [place], [id number], [place] [facility] routine (chief complaint) Encounter for supervision of normal first , unspecified trimester 3 Ndia Montanez. [address] [facility], [place] [address], [place], [id number], [place]. tel:[phone] OFFICE/OUTPA TIENT VISIT, [facility], [address], [place], [place], [id number], [place] [facility] Encounter for supervision of normal first , unspecified trimester 3 Tawanna Aguilar. [address] [facility], [place], [id number], [place]. tel:[phone] OFFICE/OUTPA TIENT VISIT, [facility], [address], [place], [id number], [place] [facility] care, first trimester 2 Tawanna Aguilar. [address] [facility], [place], [id number], [place]. tel:[phone] [facility], [address], [place], [id number], [place] [facility] New Ob Initial Visit (chief complaint) Encounter for test, result positiveEncounte r for supervision of normal first in first trimester 2 Jered Mcqueen. [address] [facility], [place], [address], [place]. tel:[phone] OFFICE/OUTPA TIENT VISIT, [facility], [address] [place] [address], [place], [id number], [place] [facility] Adult test (chief complaint) Encounter for test, result positive 2 Dipti Castillo. [address] [facility], [place], [id number], [place]. 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 Reason For Referral Reason For Referral No Information Plan Of Treatment Date Type Action Status Goal Hepatitis C scre ening. Due on due Goal RESEARCH AND DEVELOPMENT RESEARCHER exam. Due on due Goal HPV (). Due on due Goal Depression scree flaquito. Due on due Goal Tdap due Goal HIV Consented. Due on due Goal Influenza Vaccin e. Due on due Goal Unhealthy drug u se screening. Due on due Goal HIV Screen. Due on due Goal Hepatitis C anti body. Due on due Goal PAP. Due on due Goal Unhealthy drug u se screening. Due on due Goal HIV Screen. Due on due Goal Hepatitis C anti body. Due on due Goal RESEARCH AND DEVELOPMENT RESEARCHER exam. Due on due Goal Tdap due Goal Depression scree flaquito. Due on due Goal HPV (). Due on due Goal HIV Consented. Due on due Goal Hepatitis C scre ening. Due on due Goal PAP. Due on due Goal Hepatitis C anti body. Due on due Goal RESEARCH AND DEVELOPMENT RESEARCHER exam. Due on due Goal PAP. Due on due Goal Depression scree flaquito. Due on due Goal Tdap due Goal Unhealthy drug u se screening. Due on due Goal Hepatitis C scre ening. Due on due Goal HPV (). Due on due Goal HIV Screen. Due on due Goal HIV Consented. Due on due Goal Tdap due Goal Hepatitis C scre ening. Due on due Goal Depression scree flaquito. Due on due Goal HIV Consented. Due on due Goal Unhealthy drug u se screening. Due on due Goal RESEARCH AND DEVELOPMENT RESEARCHER exam. Due on due Goal HPV (). Due on due Goal Hepatitis C anti body. Due on due Goal HIV Screen. Due on due Goal PAP. Due on due Goal RESEARCH AND DEVELOPMENT RESEARCHER exam. Due on due Goal Unhealthy drug u se screening. Due on due Goal PAP. Due on due Goal Depression scree flaquito. Due on due Goal Tdap due Goal Hepatitis C anti body. Due [...] C scre ening. Due on due Goal HPV (). Due on due Goal HIV Screen. Due on due Goal RESEARCH AND DEVELOPMENT RESEARCHER exam. Due on due Goal PAP. Due on due Goal Depression scree flaquito. Due on due Goal HIV Consented. Due on due Goal Unhealthy drug u se screening. Due on due Goal Hepatitis C scre ening. Due on due Goal Tdap. Due on due Goal PAP. Due on due Goal HPV (). Due on due Goal RESEARCH AND DEVELOPMENT RESEARCHER exam. Due on due Goal HIV Screen. Due on due Goal Hepatitis C anti body. Due on due Goal Depression scree flaquito. Due on due Goal HIV Consented. Due on due Goal HPV (). Due on due Goal Tdap. Due on due Goal HIV Screen. Due on due Goal RESEARCH AND DEVELOPMENT RESEARCHER exam. Due on due Goal Hepatitis C anti body. Due on due Goal Hepatitis C scre ening. Due on due Goal Unhealthy drug u se screening. Due on due Goal PAP. Due on due Goal HIV Consented. Due on due Goal Hepatitis C scre ening. Due on due Goal Tdap. Due on due Goal Colonoscopy. Due on 023 due Goal Unhealthy drug u se screening. Due on due Goal FOBT. Due on due Goal HPV (1st). Due on due Goal CT-Colonography. Due on due Goal PAP. Due on due Goal Depression scree flaquito. Due on due Goal FIT. Due on due Goal RESEARCH AND DEVELOPMENT RESEARCHER exam. Due on due Goal FIT-DNA. Due on [...] due Goal Tdap. Due on due Goal FOBT. Due on due Goal FIT-DNA. Due on due Goal RESEARCH AND DEVELOPMENT RESEARCHER exam. Due on due Goal HPV (). Due on due Goal HIV Screen. Due on due Goal HIV Consented. Due on due Goal FIT-DNA. Due on due Goal FOBT. Due on due Goal Tdap. Due on due Goal HPV (). Due on due Goal Unhealthy drug u se screening. Due on due Goal Hepatitis C scre ening. Due on due Goal RESEARCH AND DEVELOPMENT RESEARCHER exam. Due on due Goal Depression scree flaquito. Due on due Goal Colonoscopy. Due on due Goal CT-Colonography. Due on due Goal PAP. Due on due Goal FIT. Due on due Goal HIV Consented. Due on due Goal Depression scree flaquito. Due on due Goal Colonoscopy. Due on due Goal CT-Colonography. Due on [...] C scre ening. Due on due Goal RESEARCH AND DEVELOPMENT RESEARCHER exam. Due on due Referral Ordered: OB US > OR = TO 14 WKS, SNGL FETUS ordered Referral Ordered: OB US NUCHAL MALISSA, FIRST TRIMESTER SINGLE ordered Patient Education Learning About Pregnanc y completed Future Order: Radiology Order OB US > OR = TO 14 WKS, SNGL FETUS ([id number]), Added on: New Future Order: Lab Order Panorama Test (NPT), Collected on: , Sent on: Sent Future Order: Radiology Order OB US NUCHAL MALISSA, FIRST TRIMESTER SINGLE ([id number]), Added on: New Future Order: Radiology Order OB US NUCHAL MALISSA, FIRST TRIMESTER SINGLE ([id number]), Added on: New Future Order: Lab Order Antibody Screen ([id number]), Appointment on: , Sent on: Sent Future Order: Lab Order Type and Screen ([id number]), Appointment on: , Sent on: Sent Future Order: Lab Order Hep B Simpson rface Ag ([id number]), Appointment on: , Sent on: Sent Future Order: Lab Order RPR, Rfx Qn RPR/Confirm TP-PA ([id number]), Appointment on: , Sent on: Sent Future Order: Lab Order CBC ([id number]), Appointment on: , Sent on: Sent Future Order: Lab Order HIV Scre en ([id number]), Appointment on: , Sent on: Sent Future Order: Lab Order Varicell a-Zoster Ab, IgG ([id number]), Appointment on: , Sent on: Sent Future Order: Lab Order HGB Elec trophoresis ([id number]), Appointment on: , Sent on: Sent Future Order: Lab Order Rubella Immunity ([id number]), Appointment on: , Sent on: Sent History [...] well, she denies depressions/p Mirena placement @ [facility] UTD and WNL. IUD CHECK 10/21/2022, d [...] Mental Status Date Cognitive Assessment Orientation - [place] ed to time, place, person, situation. Patient Care Teams Name Effective Dates (start - stop) Status Members No Information
--- OUTSIDE RECORDS SUMMARY | 2024-08-19 14:34 | XMS_ITS | Encounter Summary ---
Author Organization [employer] Address [address] [place] [address] Care Team Providers Care Supervisor Kennel Name Role Phone Anna No MD Primary Care Provide r Reason for Visit * Reason Onset Date Comments Lab Orders 08/18/2024 Encounter Details Date Type Department Care Team ([facility] st Contact Info) Description 08/18/2024 Telephone [facility] MEDICINE [address] [place] [address] Pati Miranda, [facility] [address] [place] [address] Lab Orders Social History Tobacco Use Types Packs/Day Years [...] AM EST documented as of this encounter Miscellaneous Notes * Telephone Encounter - Ijeoma Thurman RN - 08/18/2024 11:25 AM EDT Received fax of pap results. Uploaded to Media under outside results. * Telephone Encounter - Ijeoma Thurman RN - 08/18/2024 10:45 AM EDT Telephone call to [facility] lab, spoke with Amita who stated that the pap resulted 08/10/24 and to look for the specimen #[id number]. In [facility], still says pending. Called back and asked for results to be faxed to [phone]. Amita stated results will be faxed. * Telephone Encounter - Ijeoma Thurman RN - 08/18/2024 10:43 AM EDT ----- Message from Pati Miranda sent at 08/18/2024 10:26 AM EDT ----- Pap still pending from 08/05. Could you please followup with lab to get status? Thanks! documented in this encounter Plan of Treatment Not on file documented as of this encounter Visit Diagnoses Not on filedocumented in this encounter Additional Health Concerns Assessment Noted Time PHQ-9 Depression Total Score: 10 025 12:15 PM EST documented as of this encounter Care Teams Supervisor Kennel Relationship Specialty Start Date End Date Anna No MD [address] [place] [address] PCP - General Internal Medicine 05/12/24 documented as of this encounter
== END 2024-08-05 00:01 | disposition home or self-care (01) ==
LOC: HO.LNP
PROVIDERS: Visit Provider Advanced Practice Midwife
DX: Z12.4 Encounter for screening for malignant neoplasm of cervix (principal)
CPT/HCPCS: 88175

== ENCOUNTER 2024-08-05 11:23 | Outpatient (REF) | payer SELFPAY ==
--- OUTSIDE RECORDS SUMMARY | 2024-08-05 19:45 | XMS_ITS | Encounter Summary ---
Author Organization [employer] Address [address] [place] [address] Care Team Providers Care Metal Fabricator Welder Name Role Phone Anna No MD Primary Care Provide r Reason for Visit * Reason Comments Gynecologic Exam Pap and IUD check up Encounter Details Date Type Department Care Team (Latest Contact Info) Description 08/05/2024 11:00 AM EST Procedure Visit [facility] [address] [place] [address] Pati Miranda, GENE [address] [place] [address] Cervical cancer screening (Primary Dx); Checking of [...] kg/m?? Physical Exam Exam conducted with a manager global present (Pati Miranda CNM). Constitutional: Appearance: Normal [...] get vaccine records from previous provider in [place]. documented in this encounter Plan of Treatment [...] documented as of this encounter Care Teams Metal Fabricator Welder Relationship Specialty Start Date End Date Anna No MD [address] [place] [phone] PCP - General Internal Medicine 05/12/24 documented as of this encounter
--- OUTSIDE RECORDS SUMMARY | 2024-08-05 19:45 | XMS_ITS | Encounter Summary ---
Author Organization [employer] Address [address] [place] [address] Care Team Providers Care Make Ready Worker Name Role Phone Anna No MD Primary [...] documented as of this encounter Care Teams Make Ready Worker Relationship Specialty Start Date End Date Anna No MD [address] [place] [address] PCP - General Internal Medicine 05/12/24 documented as of this encounter
--- OUTSIDE RECORDS SUMMARY | 2024-08-05 19:45 | XMS_ITS | Encounter Summary ---
Author Organization [employer] Address [address] [place] [address] Care Team Providers Care Tug Hand Name Role Phone Anna No MD Primary Care Provide r Reason for Visit * Reason Onset Date Comments Med Refill 08/05/2024 Encounter Details Date Type Department Care Team ([facility] st Contact Info) Description 08/05/2024 Refill [facility] [address] [place] [address] Anna No MD [address] [place] [address] Anxiety with depression Social History Tobacco Use [...] documented as of this encounter Care Teams Tug Hand Relationship Specialty Start Date End Date Anna No MD [address] [place] [address] PCP - General Internal Medicine 05/12/24 documented as of this encounter
--- OUTSIDE RECORDS SUMMARY | 2024-08-05 19:45 | XMS_ITS | Encounter Summary ---
Author Organization [employer] Address [address] [place] [address] Care Team Providers Care Quality Improvement Manager Name Role Phone Anna No MD [...] documented as of this encounter Care Teams Quality Improvement Manager Relationship Specialty Start Date End Date Anna No MD [address] [place] [address] PCP - General Internal Medicine 05/12/24 documented as of this encounter
--- OUTSIDE RECORDS SUMMARY | 2024-08-05 19:45 | XMS_ITS | Clinical Summary ---
Author Organization [employer] Address [address] [place] [address] Care Team Providers Care Sr. Operations Manager Name Role Phone Anna No MD [...] & Plan (05/13/2024 4:46 PM EST): Pending Gear Straightener referral Pelvic pain 05/13/2024 Assessment & Plan (05/13/2024 4:44 PM EST): Gear Straightener referral will be on hod until her insurance is fix Cervical cancer screening 05/13/2024 Encounters * This document contains information received from the source organization and may not represent a complete record from that organization. Date Type Department Care Team Description 08/05/2024 11:00 AM EST Procedure Visit [facility] [address] [place] [address] Pati Miranda CNM Cervical cancer screening (Primary Dx); Checking of intrauterine device; Screening examination for venereal disease 08/05/2024 Travel 08/05/2024 Refill [facility] [address] [place] [address] Anna No MD Anxiety with depression 07/29/2024 Travel 07/01/2024 11:15 AM EST Telemedicine [facility] [address] [place] [address] Anna No MD Anxiety with depression (Primary Dx); IUD check up; Cervical cancer screening 07/01/2024 Travel 06/17/2024 Orders Only [facility] [address] [place] [address] Anna No MD Anxiety with depression 06/10/2024 Travel 05/12/2024 10:15 AM EST Office Visit [address] [address] Anna No MD Anxiety with depression (Primary Dx); IUD check up; Pelvic pain; Cervical cancer screening 05/12/2024 Travel 05/11/2024 Telephone [facility] [address] [place] [address] Gwendolyn Amaya MA Chart Prep from Last [...] Opiate Screen Urine Not Detected Not Detect [facility] Comment:Opiate cut-off is 30 0 ng/mL.Positive results are unconfirmed and should not be used fornon-medical purposes. Barbiturates, Urine Not Detected Not Detect [facility] Comment:Barbiturate cut-off is 200 ng/mL.Positive results are unconfirmed and should not be used fornon-medical purposes. Phencyclidine Screen Urine Not Detected Not Detect [facility] Comment:Phencyclidine cut-of f is 25 ng/mL.Positive results are unconfirmed and should not be used fornon-medical purposes. Amphetamine Screen Urine Not Detected Not Detect [facility] Comment:Amphetamine cut-off is 1000 ng/mL.Positive results are unconfirmed and should not be used fornon-medical purposes. Benzodiazepines Screen Urine Not Detected Not Detect [facility] Comment:Benzodiazepine cut-o ff is 200 ng/mL.Positive results are unconfirmed and should not be used fornon-medical purposes. Cocaine Screen Urine Not Detected Not Detect [facility] Comment:Cocaine cut-off is 3 00 ng/mL.Positive results are unconfirmed and should not be used fornon-medical purposes. Cannabinoid Screen Urine Not Detected Not Detect [facility] Comment:Cannabinoid cut-off is 50 ng/mL.Positive results are unconfirmed and should not be used fornon-medical purposes. Methadone Screen, Urine Not Detected Not Detect ng/mL [facility] Comment:Methadone cut-off is 300 ng/mL.Positive results are unconfirmed and should not be used fornon-medical purposes. FENTANYL URINE Not Detected Not Detect [facility] Comment:Fentanyl cut-off is 1 ng/mL.Positive results are unconfirmed and should not be used fornon-medical purposes. Oxycodone Urine Screen Not Detected Not Detect ng/mL [facility] Comment:Oxycodone cut-off is 100 ng/mL.Positive results are unconfirmed and should not be used fornon-medical purposes. Buprenorphine Screen Not Detected Not Detect ng/mL [facility] Comment:Buprenorphine cut-of f is 5 ng/mL.Positive results are unconfirmed and should not be used fornon-medical purposes. Urine (Urine, Random) 08/05/2024 12:25 PM EST 08/05/2024 1:20 PM EST Tai Moreno PMP LAB URINE ORDERABLES Final Re sult [facility] [address] [place] [address] [phone] * CBC auto differential (05/12/2024 11:24 AM EST) White Blood Count 7.5 4.8 - 10.8 X10*3/uL [facility] Red Blood Count 4.33 4.20 - 5.50 X10*6/uL [facility] Hemoglobin 12.9 12.0 - 16.0 g/dl [facility] Hematocrit 39.0 37.0 - 47.0 % [facility] Mean Corpuscular Volume 90.1 80.0 - 98.0 fL [facility] Mean Corpuscular Hemoglobin 29.8 27.0 - 33.0 pg [facility] Mean Corpuscular HGB Conc 33.1 31.0 - 35.0 g/dl [facility] Red Cell Distribution Width 11.9 11.0 - 16.0 % [facility] Platelet Count 225 160 - 400 X10*3/uL [facility] Mean Platelet Volume 12.0 9.4 - 12.3 fL [facility] Neutrophils Percent Auto 67.1 45 - 73 % [facility] Imm Gran Pct Auto 0.1 0.0 - 0.4 % [facility] Lymphocytes Percent Auto 25.4 20 - 40 % [facility] Monocytes Percent Auto 6.3 2 - 11 % [facility] Eosinophils Percent Auto 0.3 0 - 4 % [facility] Basophils Percent Auto 0.8 0 - 2 % [facility] NRBC Pct Auto 0.0 0.0 - 0.2 /100WBC [facility] Neutrophils Absolute Auto 5.1 2.0 - 8.3 x10*3/uL [facility] Imm Gran Abs Auto 0.01 0.00 - 0.03 X10*3/uL [facility] Lymphocytes Absolute Auto 1.9 1.2 - 4.9 X10*3/uL [facility] Monocytes Absolute Auto 0.5 0.1 - 1.2 X10*3/uL [facility] Eosinophils Absolute Auto 0.0 0.0 - 0.4 X10*3/uL [facility] Basophils Absolute Auto 0.1 0.0 - 0.2 X10*3/uL [facility] NRBC Abs Auto 0.000 0.0 - 0.012 X10*3/uL [facility] Blood Venous blood specimen / Unknown 05/12/2024 11:24 AM EST 05/12/2024 1:41 PM EST Anna Castro MD LAB BLOOD ORDERABLES Final Result Performing Organization Address [facility] [[email or web address]] Co de Phone Number [facility] [address] [place] [phone] * Hepatitis C Antibody with Reflex to HCV, RNA, Quantitative, Real-Time PCR (05/12/2024 11:24 AM EST) Hepatitis C Antibody Nonreactive Nonreactive [facility] Comment:Antibodies to HCV no t detected; does not exclude early acuteHCV infection. Blood Venous blood specimen / Unknown 05/12/2024 11:24 AM EST 05/12/2024 2:31 PM EST Anna Castro MD LAB BLOOD ORDERABLES Final Result Performing Organization Address [facility] Phone Number [facility] [address] [place] [phone] * HIV-1/2 Antigen and Antibodies, Fourth Generation, with Reflexes (05/12/2024 11:24 AM EST) Pathologist [facility] HIV AB/AG Nonreactive Nonreactive [facility] Comment:HIV-1 p24 Ag and/or HIV-1/HIV-2 Ab not detected.A test result that is nonreactive does not exclude thepossibility of exposure to or infection with HIV-1 and/orHIV-2. Nonreactive results in this assay for individualswith prior exposure to HIV-1 and/or HIV-2 may be due toantigen and antibody levels that are below the limit ofdetection of this assay.[email or web address] HIV Ag/Ab Combo assay result andsupplemental assay results should be interpreted inconjunction with the patient's clinical presentation,history and other laboratory results. If the results areinconsistent with clinical evidence, additional testing issuggested to confirm the result. Blood Venous blood specimen / Unknown 05/12/2024 11:24 AM EST 05/12/2024 2:31 PM EST Anna Castro MD LAB BLOOD ORDERABLES Final Result Performing Organization Address [facility] [[email or web address]] Co de Phone Number [facility] [address] [place] [phone] * Hemoglobin A1c (05/12/2024 11:24 AM EST) Hemoglobin A1c 5.1 <6.0 % [facility] Comment:Hemoglobin A1C Refer ence Range Adults: 4.8 - 6.0 % Non diabetic: < 6.0 % Goal: < 7.0 %Additional Action Suggested: > 8.0 %Note: Hemoglobin A1c results are invalid for patients with abnormal amounts of HbF. Blood transfusions may impact the HbA1c concentration in the patient sample. Estimated Average Glucose 100 mg/dL [facility] Comment:eAG = Estimated ave rage glucose which is %A1C expressed asaverage glucose, using the formula of the A1F-FsdxnidWcnzvqr Glucose study (ADAG), Diabetes Care, Vol.31,#8,Jan. 2007 Blood Venous blood specimen / Unknown 05/12/2024 11:24 AM EST 05/12/2024 1:41 PM EST Anna Castro MD LAB BLOOD ORDERABLES Final Result Performing Organization Address [facility] [[email or web address]] Co de Phone Number [facility] [address] [place] [phone] * (ABNORMAL) Vitamin D, 25-Hydroxy, Total, Immunoassay (05/12/2024 11:20 AM EST) Vitamin D 25-OH Total 24.5(L) >30 ng/mL [facility] Comment:Health Based Referen ce Values*< 20 ng/mL Ynqdtsung16-38 ng/mL Insufficient> 30 ng/mL Sufficient*Mana DE LA [...] BLOOD ORDERABLES Final Result Performing Organization Address [facility] [[email or web address]] Co de Phone Number [facility] [address] [place] [phone] * TSH with Reflex to Free T4 (05/12/2024 11:20 AM EST) TSH reflex Free T4 3.08 0.32 - 4.0 uIU/mL [facility] Blood Venous blood specimen / Unknown 05/12/2024 11:20 AM EST 05/12/2024 2:31 PM EST us Anna Castro MD LAB BLOOD ORDERABLES Final Result Performing Organization Address [facility] [[email or web address]] Co de Phone Number [facility] [address] [place] [phone] * Lipid Panel, Standard (05/12/2024 11:20 AM EST) Triglycerides 138 <150 mg/dL [facility] Comment:Desirable Triglyceri de: less than 150 mg/dLBorderline High Triglyceride 150-199 mg/dLHigh Triglyceride: 200-499 mg/dLVery High Triglyceride: greater than or equal to 5OO mg/dL Cholesterol 161 <200 mg/dL [facility] Comment:Desirable Cholestero l: less than 200 mg/dLBorderline High Cholesterol: 200-239 mg/dLHigh Cholesterol: greater than 239 mg/dL LDL Cholesterol Calculated 85 <100 mg/dL [facility] Comment:Desirable LDL: less than 100 mg/dLNear Optimal/Above Optimal LDL: 110- 129 mg/dLBorderline High LDL: 130-159 mg/dLHigh LDL: 160-189 mg/dLVery High LDL: greater than or equal to 190 mg/dL HDL Cholesterol 49 >40 mg/dL [facility] Comment:Desirable HDL: great er than 40 mg/dL Note: This HDL assay may give artificially low results in patients with liver disease. Blood Venous blood specimen / Unknown 05/12/2024 11:20 AM EST 05/12/2024 2:31 PM EST us Anna Castro MD LAB BLOOD ORDERABLES Final Result [facility] [address] [place] [phone] * (ABNORMAL) Comprehensive Metabolic Panel (05/12/2024 11:20 AM EST) Sodium 140 135 - 145 mmol/L [facility] Potassium 3.6 3.3 - 5.1 mmol/L [facility] Chloride 107 96 - 108 mmol/L [facility] Carbon Dioxide 26 22 - 29 mmol/L [facility] Anion Gap 11(L) 12 - 20 [facility] Urea Nitrogen (BUN) 12 9 - 16 mg/dL [facility] Creatinine, Serum 0.71 0.5 - 1.4 mg/dL [facility] Estimated Glomerular Filt Rate >60 [facility] Comment:Chronic Kidney Disea se: Estimated GFR < 60 mL/min/1.56h6Keofwu Kidney Disease: Estimated GFR < 15 mL/min/1.73m2 Glucose 91 60 - 115 mg/dL [facility] Calcium 9.4 8.4 - 10.2 mg/dL [facility] Bilirubin, Total 0.4 0.0 - 1.0 mg/dL [facility] Aspartate Amino Transferase 20 5 - 31 U/L [facility] Alanine Aminotransferase 15 0 - 31 U/L [facility] Total Protein 7.6 6.5 - 8.0 g/dL [facility] Albumin Level 4.2 3.5 - 5.0 g/dL [facility] Alkaline Phosphatase 62 39 - 117 U/L [facility] Blood Venous blood specimen / Unknown 05/12/2024 11:20 AM EST 05/12/2024 2:31 PM EST us Anna Castro MD LAB BLOOD ORDERABLES Final Result Performing Organization Address City/State/[facility] [[email or web address]] Co de Phone Number [facility] [address] [place] [address] [phone] from Last 3 Months Insurance [facility] H[employer] FULL Care Teams Sr. Operations Manager Relationship Specialty Start Date End Date Anna No MD [address] [place] [phone] PCP - General Internal Medicine 05/12/24
--- OUTSIDE RECORDS SUMMARY | 2024-08-05 19:45 | XMS_ITS | Continuity of Care Document ---
Author Organization [email or web address] Address [address] [place] [address] Care Team Providers Care Transplant Registered Nurse Name Role Phone Jenni Cruz Unavailable Unavailable [...] AMP PROB Intake URINE TEST OFFICE/OUTPATIENT VISIT, [facility] Advance Directives Directive Yes / No Effective Date File Name No Information Encounters Encounter Description Practice Location Reason(s) For Visit Diagnoses Date Provider Providers Copied on Encounter [facility], [address] [place], [id number], [place] [facility] check (chief complaint) Encounter for test, result negativeIUD (intrauterine device) in placeEncounter for visitSVD (spontaneous vaginal delivery) 3 Mp Arteaga. [address] [facility], [place], [id number], [place]. tel:[phone] OFFICE/OUTPA TIENT VISIT, EST [facility], [address] [place], [id number], [place] [facility] IUD CHECK (chief complaint) Encounter for routine checking of intrauterine contraceptive device (IUD) [address] [facility], [place], [id number], [place]. tel:[phone] [facility], [address], [place], [phone], [place] [facility] No Information 3 Radha Vicente. [address] [facility], [place], [id number], [place]. tel:[phone] OFFICE/OUTPA TIENT VISIT, [facility], [address], [place], [phone], [place] [facility] Encounter for supervision of normal first , third trimester 3 Mp Arteaga. [address] [facility], [place], [id number], [place]. tel:[phone] OFFICE/OUTPA TIENT VISIT, [facility], [address], [place], [phone], [place] [facility] routine (chief complaint) Encounter for supervision of normal first , third trimesterEncount er for other contraceptive management 3 Mp Arteaga. [address] [facility], [place], [id number], [place]. tel:[phone] OFFICE/OUTPA TIENT VISIT, [facility], [address], [place], [phone], [place] [facility] routine (chief complaint) Encounter for immunizationEnco unter for supervision of normal first , third trimester [address] [facility], [place], [id number], [place]. tel:[phone] OFFICE/OUTPA TIENT VISIT, [facility], [address], [place], [phone], [place] [facility] care in third trimesterEncount er for supervision of normal , unspecified, second trimester Mar-2 3 Tawanna Aguilar. [address] [facility], [place], [id number], [place]. tel:[phone] OFFICE/OUTPA TIENT VISIT, [facility], [address], [place], [phone], [place] [facility] routine (chief complaint) Encounter for supervision of normal first , unspecified trimesterPrenata l care in second trimester 3 Nida Montanez. [address] [facility], [facility], [place], [id number], [place]. tel:[phone] OFFICE/OUTPA TIENT VISIT, [facility], [address], [place], [phone], [place] [facility] routine (chief complaint) Encounter for supervision of normal first , unspecified trimester 3 Nida Montanez. [address] [facility], [place] [address], [place], [id number], [place]. tel:[phone] OFFICE/OUTPA TIENT VISIT, [facility], [address], [place], [phone], [place] [facility] Encounter for supervision of normal first , unspecified trimester 3 Tawanna Aguilar. [address] [facility], [place], [id number], [place]. tel:[phone] OFFICE/OUTPA TIENT VISIT, [facility], [address], [place], [phone], [place] [facility] care, first trimester 2 Tawanna Aguilar. [address] [facility], [place], [id number], [place]. tel:[phone] [facility], [address], [place], [id number], [place] [facility] New Ob Initial Visit (chief complaint) Encounter for test, result positiveEncounte r for supervision of normal first in first trimester 2 Jered Mcqueen. [address] [facility], [place], [address], [place]. tel:[phone] OFFICE/OUTPA TIENT VISIT, [facility], [address] [place] [address], [place], [phone], [place] [facility] Adult test (chief complaint) Encounter for test, result positive 2 Dipti Castillo. [address] [facility], [place], [id number], [place]. tel:[phone] Family History Family Member Type Diagnosis Age At Onset No Information Immunizations Vaccine Date Status Comments Tdap administered Source: New Imm unization Record Flulaval - Pre-filled refused Source : New Immunization Record Payers Payer name Insurance type Covered republican ID Authorernesto lepe(s) Slide A Adult ELECTRIC OPERATOR Opt 09 1 Slide A Adult ELECTRIC OPERATOR Opt 09 1 Slide A Adult ELECTRIC OPERATOR Opt 09 1 Social History Type [...] well, she denies depressions/p Mirena placement @ [facility] UTD and WNL. Reason For Referral [...] C anti body. Due on due Goal ELECTRIC OPERATOR exam. Due on due Goal HIV Consented. Due on due Goal Depression scree flaquito. Due on due Goal Tdap due Goal HIV Consented. Due on due Goal Hepatitis C scre ening. Due on due Goal ELECTRIC OPERATOR exam. Due on due Goal HPV [...] C anti body. Due on due Goal ELECTRIC OPERATOR exam. Due on due Goal PAP. Due on due Goal Hepatitis C anti body. Due on due Goal ELECTRIC OPERATOR exam. Due on due Goal PAP. [...] Goal HPV (). Due on due Goal ELECTRIC OPERATOR exam. Due on due Goal Hepatitis C scre ening. Due on due Goal Tdap due Goal PAP. Due on due Goal Hepatitis C anti body. Due on due Goal HIV Screen. Due on due Goal Unhealthy drug u se screening. Due on due Goal ELECTRIC OPERATOR exam. Due on due Goal Depression [...] Depression scree flaquito. Due on due Goal ELECTRIC OPERATOR exam. Due on due Goal PAP. [...] Depression scree flaquito. Due on due Goal ELECTRIC OPERATOR exam. Due on due Goal PAP. Due on due Goal HPV (1st). Due on due Goal HIV Consented. Due on due Goal HIV Screen. Due on due Goal Hepatitis C anti body. Due on due Goal ELECTRIC OPERATOR exam. Due on due Goal Colonoscopy. Due on due Goal Unhealthy drug u [...] due Goal FIT-DNA. Due on due Goal ELECTRIC OPERATOR exam. Due on due Goal Colonoscopy. Due on 022 due Goal FIT. Due on due Goal HIV Screen. Due on due Goal Unhealthy drug u se screening. Due on due Goal PAP. Due on due Goal HIV Consented. Due on due Goal HPV (1st). Due on due Goal FIT-DNA. Due on [...] due Goal FIT-DNA. Due on due Goal ELECTRIC OPERATOR exam. Due on due Goal HPV (1st). Due on due Goal Tdap. Due on due Goal CT-Colonography. Due on due Goal FIT. Due on due Goal PAP. Due on due Goal Hepatitis C scre ening. Due on due Goal Colonoscopy. Due on due Goal Depression scree flaquito. Due on due Goal FIT. Due on due Goal PAP. Due on due Goal HIV Consented. Due on due Goal FIT-DNA. Due on due Goal FOBT. Due on due Goal Tdap. Due on due Goal HPV (1st). Due on 2 due Goal Unhealthy drug u se screening. Due on due Goal Influenza Vaccin e. Due on due Goal Hepatitis C scre ening. Due on due Goal ELECTRIC OPERATOR exam. Due on due Goal Depression scree flaquito. Due on due Goal Colonoscopy. Due on [address]-Colonography. Due on due Goal HIV Screen. Due on 22 due Referral Ordered: OB US > OR = TO 14 WKS, SNGL FETUS ordered Referral Ordered: OB US NUCHAL MALISSA, FIRST TRIMESTER SINGLE ordered Patient Education Learning About Pregnanc y completed Future Order: Radiology Order OB US > OR = TO 14 WKS, SNGL FETUS ([id number]), Added on: New Future Order: Lab Order Panorama Test (NPT), Collected on: , Sent on: Sent Future Order: Radiology Order OB US NUCHAL MALISSA, FIRST TRIMESTER SINGLE ([id number]), Added on: New Future Order: Radiology Order OB US NUCHAL MALISSA, FIRST TRIMESTER SINGLE ([id number]), Added on: New Future Order: Lab Order Antibody Screen ([id number]), Appointment on: , Sent on: Sent Future Order: Lab Order Type and Screen ([id number]), Appointment on: , Sent on: Sent Future Order: Lab Order Hep B Simpson rface Ag ([id number]), Appointment on: , Sent on: Sent Future Order: Lab Order RPR, Rfx Qn RPR/Confirm TP-PA ([id number]), Appointment on: , Sent on: Sent Future Order: Lab Order CBC ([id number]), Appointment on: , Sent on: Sent Future Order: Lab Order HIV Scre en ([id number]), Appointment on: , Sent on: Sent Future Order: Lab Order Varicell a-Zoster Ab, IgG ([id number]), Appointment on: , Sent on: Sent Future Order: Lab Order HGB Elec trophoresis ([id number]), Appointment on: , Sent on: Sent Future Order: Lab Order Rubella Immunity ([id number]), Appointment on: , Sent on: Sent History [...] Mental Status Date Cognitive Assessment Orientation - [place] ed to time, place, person, situation. Patient Care Teams Name Effective Dates (start - stop) Status Members No Information
[2024-08-07 14:09] LABS: C. trachomatis RNA TMA NOT DETECTED (NOT DETECTED); N. gonorrhoeae RNA TMA NOT DETECTED (NOT DETECTED)
[2024-08-14 13:13] LABS: Trichomonas (NAAT) NOT DETECTED
== END 2024-08-05 11:24 | disposition home or self-care (01) ==
LOC: HO.LNP 11:23
PROVIDERS: Visit Provider Advanced Practice Midwife
DX: Z11.3 Encounter for screening for infections with a predominantly sexual mode of transmission (principal)
CPT/HCPCS: 87491; 87591; 87661

== ENCOUNTER 2024-08-05 12:20 | Outpatient (REF) | payer SELFPAY ==
[2024-08-05 13:51] LABS: Amphetamine Screen Urine Not Detected (Not Detect); Barbiturates, Urine Not Detected (Not Detect); Benzodiazepines Screen Urine Not Detected (Not Detect); Buprenorphine Scr Not Detected (Not Detect); Cannabinoid Screen Urine Not Detected (Not Detect); Cocaine Screen Urine Not Detected (Not Detect); Fentanyl, urine Not Detected (Not Detect); Methadone Screen, Urine Not Detected (Not Detect); Opiate Screen Urine Not Detected (Not Detect); Oxycodone Screen Urine Not Detected (Not Detect); Phencyclidine Screen Urine Not Detected (Not Detect)
--- OUTSIDE RECORDS SUMMARY | 2024-08-05 15:13 | XMS_ITS | Encounter Summary ---
Author Organization [employer] Address [address] [place] [address] Care Team Providers Care Patient Accounts Coordinator Name Role Phone Anna No MD Primary Care Provide r Encounter Details Date Type Department Care Team (Latest Contact Info) Description 08/05/2024 Travel Social History Tobacco Use Types Packs/Day Years Used Date Smoking Tobacco: Never Passive Smoke Exposure: Never Smokeless Tobacco: Never Alcohol Use Standard Drinks/Week Comments Never 0 (1 standard drink = 0.6 oz pur e alcohol) Depression Answer Date Recorded Patient Health Questionnaire-9 Score 10 06/17/2024 Patient Health Questionnaire-9 Score 10 06/17/2024 Last PHQ-9: Questionnaire Data Not on file 0 06/17/2024 Housing Stability Answer Date Recorded What is your housing situation today? I have fransisco denton 04/28/[address] you li ve. Do you have problems with any of the following? None of the above 04/28/2024 Food Insecurity Answer Date Recorded Within the past 12 months, y ou worried that your food would run out before you got money to buy more: Never True 04/28/2024 Within the past 12 months,th e food you bought just didn't last and you didn't have enough money to get more: Never True Transportation Answer Date Recorded In the past 12 months, has l ack of transportation kept you from medical appts, meetings, work or from getting things needed for daily living? No 04/28/2024 Utilities Answer Date Recorded In the past 12 months, has t he electric, gas, oil or water company threatened to shut off services in your home? No 04/28/2024 Depression Answer Date Recorded Patient Health Questionnaire-2 Score 4 06/17/2024 Internet Access Answer Date Recorded Internet Access Q1 Yes 04/28/2024 Internet Access Q2 Not on file 04/28/2024 Comments No Sex and Gender Information Value Date Recorded Sex Assigned at Female 09/06/2023 1:12 PM EDT Legal Sex Female 1:11 PM EDT Gender Identity Female 05/20/2024 9:22 AM EST Sexual Orientation Straight 05/20/2024 9: 22 AM EST documented as of this encounter Plan of Treatment Not on file documented as of this encounter Visit Diagnoses Not on filedocumented in this encounter Additional Health Concerns Assessment Noted Time PHQ-9 Depression Total Score: 10 025 12:15 PM EST documented as of this encounter Care Teams Patient Accounts Coordinator Relationship Specialty Start Date End Date Anna No MD [address] [place] [address] PCP - General Internal Medicine 05/12/24 documented as of this encounter
--- OUTSIDE RECORDS SUMMARY | 2024-08-05 15:13 | XMS_ITS | Encounter Summary ---
Author Organization [employer] Address [address] [place] [address] Care Team Providers Care Campus Safety Officer Name Role Phone Anna No MD Primary Care Provide r Reason for Visit * Reason Onset Date Comments Med Refill 08/05/2024 Encounter Details Date Type Department Care Team ([facility] st Contact Info) Description 08/05/2024 Refill [facility] [address] [place] [address] Anna No MD [address] [place] [address] Anxiety with depression Social History Tobacco Use Types Packs/Day Years [...] documented as of this encounter Visit Diagnoses Diagnosis Anxiety with depression documented in this encounter Additional Health Concerns Assessment Noted Time PHQ-9 Depression Total Score: 10 025 12:15 PM EST documented as of this encounter Care Teams Campus Safety Officer Relationship Specialty Start Date End Date Anna No MD [address] [place] [address] PCP - General Internal Medicine 05/12/24 documented as of this encounter
--- OUTSIDE RECORDS SUMMARY | 2024-08-05 15:13 | XMS_ITS | Encounter Summary ---
Author Organization [employer] Address [address] [place] [address] Care Team Providers Care Baccarat Manager Name Role Phone Anna No MD Primary Care Provide r Encounter Details Date Type Department Care Team (Latest Contact Info) Description 07/29/2024 Travel Social History Tobacco Use Types Packs/Day [...] Access Q2 Not on file 04/28/2024 Comments Unknown Sex and Gender Information Value Date Recorded [...] documented as of this encounter Care Teams Baccarat Manager Relationship Specialty Start Date End Date Anna No MD [address] [place] [address] PCP - General Internal Medicine 05/12/24 documented as of this encounter
--- OUTSIDE RECORDS SUMMARY | 2024-08-05 15:13 | XMS_ITS | Encounter Summary ---
Author Organization [employer] Address [address] [place] [address] Care Team Providers Care Low Emission Automobile Designer Name Role Phone Anna No MD Primary Care Provide r Reason for Visit * Reason Comments Gynecologic Exam Pap and IUD check up Encounter Details Date Type Department Care Team (Latest Contact Info) Description 08/05/2024 11:00 AM EST Procedure Visit [facility] [address] [place] [address] Pati Miranda, GENE [address] [place] [address] Cervical cancer screening (Primary Dx); Checking of intrauterine device; Screening examination for venereal disease Social History Tobacco Use Types Packs/Day Years [...] AM EST documented as of this encounter Last Filed Vital Signs Vital Sign Reading Time Taken Comments Blood Pressure 131/75 08/05/2024 11:04 AM EST Pulse 95 08/05/2024 11:04 AM EST Temperature 36.3 ??C (97.3 ??F) 08/05/2024 11:[address] Respiratory Rate 20 08/05/2024 11:04 AM EST Oxygen Saturation 96% 08/05/2024 11:04 AM EST Inhaled Oxygen Concentration - - Weight 63.2 kg (139 lb 6.4 oz) 08/05/2024 11:04 AM EST Height 165.1 cm (5' 5 ) 08/05/2024 11:04 AM EST Body Mass Index 23.2 08/05/2024 11:04 AM EST documented in this encounter Progress Notes * Pati Miranda CNM - 08/05/2024 11:00 AM EST Subjective Patient ID: Daniellemarjorie Abdi is a 23 y.o. female who presents for pap No pap on file. Mirena inserted 10/2022. HIV and Hep C neg 05/2024. No other STI testing on file. Would like remainder of STI testing today. Not currently sexually active, no current partner. Not planning in the next year. Occasionally feels strings are poking her, but otherwise happy with IUD, largely amenorrheic. Patient seen in conjunction with MICHAEL Marino student. I was present for and confirmed all pertinent elements in the history, exam, assessment of the patient, and the plan of care, and agree with all findings. Review of Systems Genitourinary: Negative for dyspareunia, dysuria, frequency, genital sores, hematuria, menstrual problem, pelvic pain, urgency, vaginal bleeding, vaginal discharge and vaginal pain. No abnormal pap, no abnormal bleeding. Objective BP 131/75 (BP Location: Left arm, Patient Position: Sitting, BP Cuff Size: Adult) Pulse 95 Temp97.3 ??F (36.3 ??C) (Temporal) Resp 20 Ht 5' 5 (1.651 m) Wt 139 lb 6.4 oz (63.2 kg) SpO2 96% BMI 23.20 kg/m?? Physical Exam Exam conducted with a parakeet raiser present (Pati Miranda CNM). Constitutional: Appearance: Normal appearance. Genitourinary: General: Normal vulva. Labia: Right: No rash, tenderness, lesion or injury. Left: No rash, tenderness, lesion or injury. Vagina: Normal. No signs of injury and foreign body. No vaginal discharge, erythema, tenderness, bleeding or lesions. Cervix: No cervical motion tenderness, discharge, friability, lesion, erythema, cervical bleeding or eversion. Uterus: Normal. Not enlarged and not tender. Adnexa: Right adnexa normal and left adnexa normal. Right: No mass, tenderness or fullness. Left: No mass, tenderness or fullness. Comments: IUD strings noted. Body of IUD nonpalpable. IUD strings trimmed from just under 2cm to just inside os. Neurological: Mental Status: She is alert. Psychiatric: Mood and Affect: Mood normal. Behavior: Behavior normal. Assessment/Plan Diagnoses and all orders for this visit: Cervical cancer screening - Pap Smear Pap today. Repeat in 3 years if normal. Will contact with results. Checking of intrauterine device Reviewed normal side effects and danger signs. Report heavy bleeding, fever, chills or abdominal pain. Strings trimmed to just inside os. Remove/replace IUD by 8y from insertion. May remove any time before then if desired. Screening examination for venereal disease - STI testing add on ([place], [place], [place]) - Hepatitis B Core Antibody, Total; Future - Hepatitis B Surface Antibody, Qualitative; Future - Hepatitis B surface antigen, EIA; Future - Syphilis Screen; Future Pap based and serum labs ordered. Will have her fill out release to get vaccine records from previous provider in [place]. documented in this encounter Plan of Treatment Scheduled Orders Name Type Priority Associated Diagnoses Orde r Schedule Pap Smear Pathology and Cytology Routine Cervical cancer screening Ordered: 08/05/2024 STI testing add on ([place], [place], [facility]) Pathology and Cytology Routine Screening examination for venereal disease Ordered: 08/05/2024 Hepatitis B Core Antibody, Total Lab Routine Screening examination for venereal disease Expected: 08/05/2024 (Approximate), Expires: 08/05/2025 Hepatitis B Surface Antibody, Qualitative Lab Routine Screening examination for venereal disease Expected: 08/05/2024 (Approximate), Expires: 08/05/2025 Hepatitis B surface antigen, EIA Lab Routine Screening examination for venereal disease Expected: 08/05/2024 (Approximate), Expires: 08/05/2025 Syphilis Screen Lab Routine Screening examination for venereal disease Expected: 08/05/2024 (Approximate), Expires: 08/05/2025 documented as of this encounter Visit Diagnoses Diagnosis Cervical cancer screening- Primary Screening for malignant neoplasm of the cervix Checking of intrauterine device Screening examination for venereal disease documented in this encounter Additional Health Concerns Assessment Noted Time PHQ-9 Depression Total Score: 10 025 12:15 PM EST documented as of this encounter Care Teams Low Emission Automobile Designer Relationship Specialty Start Date End Date Anna No MD [address] [place] [id number] PCP - General Internal Medicine 05/12/24 documented as of this encounter
--- OUTSIDE RECORDS SUMMARY | 2024-08-05 15:13 | XMS_ITS | Continuity of Care Document ---
Author Organization [employer] Address [address] [place] [address] Care Team Providers Care Photographic Technician Name Role Phone Jenni Cruz Unavailable Unavailable [...] AMP PROB Intake URINE TEST OFFICE/OUTPATIENT VISIT, [facility] Advance Directives Directive Yes / No Effective Date File Name No Information Encounters Encounter Description Practice Location Reason(s) For Visit Diagnoses Date Provider Providers Copied on Encounter [facility], [address] [place], [id number], [place] [facility] check (chief complaint) Encounter for test, result negativeIUD (intrauterine device) in placeEncounter for visitSVD (spontaneous vaginal delivery) 3 Mp Arteaga. [address] [facility], [place], [id number], [place]. tel:[phone] OFFICE/OUTPA TIENT VISIT, EST [facility], [address] [place], [id number], [place] [facility] IUD CHECK (chief complaint) Encounter for routine checking of intrauterine contraceptive device (IUD) 3 Dilia Ellis. [address] [facility], [place], [id number], [place]. tel:[phone] [facility], [address], [place], [id number], [place] [facility] Inpt No Information 3 Radha Vicente. [address] [facility], [address], [place], [id number], [place]. tel:[phone] OFFICE/OUTPA TIENT VISIT, [facility], [address], [place], [id number], [place] [facility] Encounter for supervision of normal first , third trimester 3 Mp Arteaga. [address] [facility], [place], [id number], [place]. tel:[phone] OFFICE/OUTPA TIENT VISIT, [facility], [address], [place], [id number], [place] [facility] routine (chief complaint) Encounter for supervision of normal first , third trimesterEncount er for other contraceptive management 3 Mp Arteaga. [address] [facility], [place], [id number], [place]. tel:[phone] OFFICE/OUTPA TIENT VISIT, [facility], [address], [place], [id number], [place] [facility] routine (chief complaint) Encounter for immunizationEnco unter for supervision of normal first , third trimester 3 Dilia Ellis. [address] [facility], [place], [id number], [place]. tel:[phone] OFFICE/OUTPA TIENT VISIT, [facility], [address], [place], [id number], [place] [facility] care in third trimesterEncount er for supervision of normal , unspecified, second trimester Mar-2 3 Tawanna Aguilar. [address] [facility], [place], [id number], [place]. tel:[phone] OFFICE/OUTPA TIENT VISIT, [facility], [address], [place], [phone], [place] [facility] routine (chief complaint) Encounter for supervision of normal first , unspecified trimesterPrenata l care in second trimester 3 Nida Montanez. [address] [facility], [facility] [address], [place], [id number], [place]. tel:[phone] OFFICE/OUTPA TIENT VISIT, [facility], [address], [place], [id number], [place] [facility] routine (chief complaint) Encounter for supervision of normal first , unspecified trimester 3 Nida Montanez. [address] [facility], [place] [address], [place], [id number], [place]. tel:[phone] OFFICE/OUTPA TIENT VISIT, [facility], [address], [place], [id number], [place] [facility] Encounter for supervision of normal first , unspecified trimester 3 Tawanna Aguilar. [address] [facility], [place], [id number], [place]. tel:[phone] OFFICE/OUTPA TIENT VISIT, [facility], [address], [place], [phone], [place] [facility] care, first trimester 2 Tawanna Aguilar. [address] [facility], [place], [id number], [place]. tel:[phone] [facility], [address], [place], [id number], [place] [facility] New Ob Initial Visit (chief complaint) Encounter for test, result positiveEncounte r for supervision of normal first in first trimester 2 Jered Mcqueen. [address] [facility], [place], [address], [place]. tel:[phone] OFFICE/OUTPA TIENT VISIT, [facility], [address] [place] [address], [place], [id number], [place] [facility] Adult test (chief complaint) Encounter for test, result positive 2 Dipti Castillo. [address] [facility], [place], [id number], [place]. tel:[phone] Family History Family Member Type Diagnosis Age At Onset No Information Immunizations Vaccine Date Status Comments Tdap administered Source: New Imm unization Record Flulaval - Pre-filled refused Source : New Immunization Record Payers Payer name Insurance type Covered constitution party ID Authorernesto lepe(s) Slide A Adult [employer] Opt 09 1 Sl[employer] Adult [employer] Opt 09 1 Sl[employer] A Adult [employer] Opt 09 1 Social History Type Description [...] well, she denies depressions/p Mirena placement @ [facility] UTD and WNL. Reason For Referral Reason For Referral No Information Plan Of Treatment Date Type Action Status Goal Depression scree flaquito. Due on due Goal PAP. Due on due Goal Tdap due Goal HPV (1st). Due on due Goal Influenza Vaccin e. Due on due Goal Hepatitis C anti body. 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 Due on due Goal HIV Consented. Due on due Goal Hepatitis C scre ening. Due on due Goal Unhealthy drug u se screening. Due on due Goal HIV Screen. Due on due Goal Depression scree flaquito. Due on due Goal Tdap due Goal HIV Consented. 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 Due on due Goal HPV (1st). Due on due Goal Unhealthy drug u se screening. Due on due Goal HIV Screen. Due on due Goal Hepatitis C anti body. Due on due Goal Hepatitis C scre ening. Due on due Goal PAP. Due on due Goal HIV Screen. Due on due Goal Unhealthy drug u se screening. Due on due Goal Tdap due Goal HPV (1st). Due on due Goal HIV Consented. Due on due Goal Hepatitis C scre ening. Due on due Goal Depression scree flqauito. Due on due Goal Hepatitis C anti body. 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 Due on due Goal PAP. Due on due Goal HPV (). Due on due Goal Hepatitis C anti body. 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 Due on due Goal PAP. Due on due Goal Hepatitis C scre ening. Due on due Goal Unhealthy drug u se screening. Due on due Goal HIV Screen. Due on due Goal Depression scree flaquito. Due on due Goal HIV Consented. Due on due Goal Tdap due Goal Depression scree flaquito. Due on due Goal HIV Consented. Due on due Goal Unhealthy drug u se screening. Due on due Goal HPV (). 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 Due on due Goal Hepatitis C scre ening. Due on due Goal Tdap due Goal PAP. Due on due Goal Hepatitis C anti body. Due on due Goal HIV Screen. Due on due Goal HIV Consented. Due on due Goal HPV (1st). Due on due Goal PAP. Due on due Goal Hepatitis C anti body. Due on due Goal HIV Screen. Due on due Goal Hepatitis C scre ening. Due on due Goal Unhealthy drug u se screening. 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 Due on due Goal Depression scree flaquito. Due on due Goal Tdap. Due on due Goal Unhealthy drug u se screening. Due on due Goal Hepatitis C scre ening. Due on due Goal Hepatitis C anti body. Due on due Goal HIV Consented. Due on due Goal Tdap. Due on due Goal Depression scree flaquito. 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 Due on due Goal PAP. Due on due Goal HPV (1st). Due on due Goal HIV Screen. Due [...] Goal HPV (1st). 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 Due on due Goal Tdap. 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 Due on due Goal PAP. Due on due Goal Depression scree flaquito. Due on due Goal CT-Colonography. Due on due Goal HIV Screen. Due on due Goal FIT. Due on due Goal FIT-DNA. Due on due Goal Hepatitis C scre ening. Due on due Goal HIV Consented. Due on due Goal FOBT. Due on due Goal HPV (1st). Due on due Goal Tdap. Due on due Goal Unhealthy drug u se screening. Due on due Goal Colonoscopy. Due on 023 due Goal FIT-DNA. Due on due Goal HPV (1st). Due on due Goal HIV Consented. Due on due Goal PAP. Due on due Goal Unhealthy drug u se screening. Due on due Goal FIT. Due on due Goal Colonoscopy. 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 Due on due Goal Depression scree [...] due Goal FIT-DNA. 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 Due on due Goal HPV (1st). Due on due Goal Tdap. Due on due Goal Hepatitis C scre ening. Due on due Goal Colonoscopy. Due on due Goal Depression scree flaquito. Due on due Goal CT-Colonography. Due on due Goal FIT. Due on due Goal PAP. Due on due Goal Influenza Vaccin e. Due on due Goal Hepatitis C scre ening. 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 Due on due Goal Depression scree [...] drug u se screening. Due on due Referral Ordered: OB US > OR = TO 14 WKS, SNGL FETUS ordered Referral Ordered: OB US NUCHAL MALISSA, FIRST TRIMESTER SINGLE ordered Patient Education Learning About Pregnanc y completed Future Order: Radiology Order OB US > OR = TO 14 WKS, SNGL FETUS ([id number]), Added on: New Future Order: Lab Order Panorama Test (NPT), Collected on: , Sent on: Sent Future Order: Radiology Order OB US NUCHAL MALISSA, FIRST TRIMESTER SINGLE ([id number]), Added on: New Future Order: Radiology Order OB US NUCHAL MALISSA, FIRST TRIMESTER SINGLE ([id number]), Added on: New Future Order: Lab Order Antibody Screen ([id number]), Appointment on: , Sent on: Sent Future Order: Lab Order Type and Screen ([id number]), Appointment on: , Sent on: Sent Future Order: Lab Order Hep B Simpson rface Ag ([id number]), Appointment on: , Sent on: Sent Future Order: Lab Order RPR, Rfx Qn RPR/Confirm TP-PA ([id number]), Appointment on: , Sent on: Sent Future Order: Lab Order CBC ([id number]), Appointment on: , Sent on: Sent Future Order: Lab Order HIV Scre en ([id number]), Appointment on: , Sent on: Sent Future Order: Lab Order Varicell a-Zoster Ab, IgG ([id number]), Appointment on: , Sent on: Sent Future Order: Lab Order HGB Elec trophoresis ([id number]), Appointment on: , Sent on: Sent Future Order: Lab Order Rubella Immunity ([id number]), Appointment on: , Sent on: Sent History [...] Mental Status Date Cognitive Assessment Orientation - [place] ed to time, place, person, situation. Patient Care Teams Name Effective Dates (start - stop) Status Members No Information
--- OUTSIDE RECORDS SUMMARY | 2024-08-05 15:13 | XMS_ITS | Clinical Summary ---
Author Organization [employer] Address [address] [place] [address] Care Team Providers Care Incident Engineer Name Role Phone Anna No MD Primary Care Provide r Allergies No known active allergies Medications * This document contains information received from the source organization and may not represent a complete record from that organization. hydrOXYzine HCl (Atarax) 25 MG tabletIndicati ons:Anxiety with depression TAKE 1 TABLET BY MOUTH EVERY 8 HOURS NEEDED FORE ITCHING FOR UP TO 20 DAYS 30 tablet 1 08/05/19 25 Active hydrOXYzine HCl (Atarax) 25 MG tabletIndicati ons:Anxiety with depression Take 1 tablet (25 mg) by mouth every 8 (eight) hours if needed for itching for up to 20 days. 30 tablet 1 06/17/19 25 025 Discontinued(Re order (will not trigger notification to Pharmacy)) Active Problems Problem Noted Date Diagnosed Date Anxiety with depression 05/13/2024 Assessment & Plan (07/01/2024 12:01 PM EST): Stable, counseling done She has an appointment with mental health provider on 07/28/2024 I advise not to miss this appointment and to d her labs before her appointment C/w hydroxyzine PRN Assessment & Plan (05/13/2024 4:46 PM EST): Counseling done [facility] referral Hydroxyzine PRN prescribed RTC 4 weeks IUD check up 05/13/2024 Assessment & Plan (05/13/2024 4:46 PM EST): Pending Produce Department Supervisor referral Pelvic pain 05/13/2024 Assessment & Plan (05/13/2024 4:44 PM EST): Produce Department Supervisor referral will be on hod until her insurance is fix Cervical cancer screening 05/13/2024 Encounters * This document contains information received from the source organization and may not represent a complete record from that organization. Date Type Department Care Team Description 08/05/2024 11:00 AM EST Procedure Visit [facility] [address] [place] [address] Pati Miranda CNM Cervical cancer screening (Primary Dx); Checking of intrauterine device; Screening examination for venereal disease 08/05/2024 Travel 08/05/2024 Refill [facility] [address] [place] [address] Anna No MD Anxiety with depression 07/29/2024 Travel 07/01/2024 11:15 AM EST Telemedicine [facility] [address] [place] [address] Anna No MD Anxiety with depression (Primary Dx); IUD check up; Cervical cancer screening 07/01/2024 Travel 06/17/2024 Orders Only [facility] [address] [place] [address] Anna No MD Anxiety with depression 06/10/2024 Travel 05/12/2024 10:15 AM EST Office Visit [address] [address] Anna No MD Anxiety with depression (Primary Dx); IUD check up; Pelvic pain; Cervical cancer screening 05/12/2024 Travel 05/11/2024 Telephone [facility] [address] [place] [address] Gwendolyn Amaya MA Chart Prep from Last 3 Months Family History Medical History Relation Name Comments Uterine cancer Mother's Sister Relation Name Status Comments Mother's Sister Social History Tobacco Use Types Packs/Day Years Used Date Smoking Tobacco: Never Passive Smoke Exposure: Never Smokeless Tobacco: Never Tobacco Cessation:Counseling Given: Not Answered Alcohol Use Standard Drinks/Week Comments Never 0 [...] Orientation Straight 05/20/2024 9: 22 AM EST Last Filed Vital Signs Vital Sign Reading [...] Mass Index 23.2 08/05/2024 11:04 AM EST Plan of Treatment Health Maintenance Due Date Last Done Comments HPV Vaccines (1 - 3-dose series) 11/17/2014 DTaP/Tdap/Td Vaccines (1 - Tdap) 11/17/2018 Hepatitis B Vaccines (1 of 3 - 19+ 3-dose series) 11/17/2018 Pap Smear 11/17/2020 COVID-19 Vaccine (1 - 2023-2 5 season) 2024 Influenza Vaccine (#1) 2024 Depression Monitoring (PHQ-9) 12/15/2024, 06/17/2024 SDOH Screening 04/28/2025 04/28/2024 Alcohol/Substance Use Screening 05/12/2025 05/12/2024 Depression Screening 06/17/2025 06/17/2024, 06/17/2024 Family Planning (PISQ) 08/05/2025 08/05/2024 Tobacco Screening 08/05/2025 08/05/2024 Zoster Vaccines (1 of 2) 11/17/2049 RSV Patients and Patients Aged 60 years or older (1 - 1-dose 75+ series) 11/17/2074 HIV Screening Completed 05/12/2024 Hepatitis C Screening Completed 05/12/2024 HIB Vaccines Aged Out No longer eligi ble based on patient's age to complete this topic Hepatitis A Vaccines Aged Out No long er eligible based on patient's age to complete this topic IPV Vaccines Aged Out No longer eligi ble based on patient's age to complete this topic Meningococcal Vaccine Aged Out No waylon guillermo eligible based on patient's age to complete this topic Pneumococcal Vaccine: Pediatrics (0 to 5 Years) and At-Risk Patients (6 to 49) Years) Aged Out No longer eligible b ased on patient's age to complete this topic RSV under 20 months Aged Out No longe r eligible based on patient's age to complete this topic Rotavirus Vaccines Aged Out No longer eligible based on patient's age to complete this topic Procedures Procedure Name Priority Date/Time Associated Diagnosis Comments DRUG MONITOR, PANEL 1, SCREEN, URINE Routine 08/05/2024 12:25 PM EST Anxiety with depression HEPATITIS C AB W/REFL TO HCV RNA, QN, PCR Routine 05/12/2024 11:24 AM EST Anxiety with depression HIV 1/2 ANTIGEN/ANTIBODY, FOURTH GENERATION W/RFL Routine 05/12/2024 11:24 AM EST Anxiety with depression HEMOGLOBIN A1C Routine 05/12/2024 11:24 AM EST Anxiety with depression CBC WITH AUTO DIFFERENTIAL Routine 05/12/2024 11:24 AM EST Anxiety with depression TSH W/REFLEX TO FT4 Routine 05/12/2024 1 1:20 AM EST Anxiety with depression VITAMIN D,25-OH,TOTAL,IA Routine 05/12/2024 11:20 AM EST Anxiety with depression LIPID PANEL, STANDARD Routine 05/12/2024 11:20 AM EST Anxiety with depression COMPREHENSIVE METABOLIC PANEL Routine 05/12/2024 11:20 AM EST Anxiety with depression from Last 3 Months Results * Drug Monitoring, Panel 1, Screen, Urine (08/05/2024 12:25 PM EST) Opiate Screen Urine Not Detected Not Detect [facility] Comment:Opiate cut-off is 30 0 ng/mL.Positive results are unconfirmed and should not be used fornon-medical purposes. Barbiturates, Urine Not Detected Not Detect [facility] Comment:Barbiturate cut-off is 200 ng/mL.Positive results are unconfirmed and should not be used fornon-medical purposes. Phencyclidine Screen Urine Not Detected Not Detect [facility] Comment:Phencyclidine cut-of f is 25 ng/mL.Positive results are unconfirmed and should not be used fornon-medical purposes. Amphetamine Screen Urine Not Detected Not Detect [facility] Comment:Amphetamine cut-off is 1000 ng/mL.Positive results are unconfirmed and should not be used fornon-medical purposes. Benzodiazepines Screen Urine Not Detected Not Detect [facility] Comment:Benzodiazepine cut-o ff is 200 ng/mL.Positive results are unconfirmed and should not be used fornon-medical purposes. Cocaine Screen Urine Not Detected Not Detect [facility] Comment:Cocaine cut-off is 3 00 ng/mL.Positive results are unconfirmed and should not be used fornon-medical purposes. Cannabinoid Screen Urine Not Detected Not Detect [facility] Comment:Cannabinoid cut-off is 50 ng/mL.Positive results are unconfirmed and should not be used fornon-medical purposes. Methadone Screen, Urine Not Detected Not Detect ng/mL [facility] Comment:Methadone cut-off is 300 ng/mL.Positive results are unconfirmed and should not be used fornon-medical purposes. FENTANYL URINE Not Detected Not Detect [facility] Comment:Fentanyl cut-off is 1 ng/mL.Positive results are unconfirmed and should not be used fornon-medical purposes. Oxycodone Urine Screen Not Detected Not Detect ng/mL [facility] Comment:Oxycodone cut-off is 100 ng/mL.Positive results are unconfirmed and should not be used fornon-medical purposes. Buprenorphine Screen Not Detected Not Detect ng/mL [facility] Comment:Buprenorphine cut-of f is 5 ng/mL.Positive results are unconfirmed and should not be used fornon-medical purposes. Urine (Urine, Random) 08/05/2024 12:25 PM EST 08/05/2024 1:20 PM EST Tai Moreno PMP LAB URINE ORDERABLES Final Re sult [facility] [address] [place] [address] [phone] * CBC auto differential (05/12/2024 11:24 AM EST) White Blood Count 7.5 4.8 - 10.8 X10*3/uL [facility] Red Blood Count 4.33 4.20 - 5.50 X10*6/uL [facility] Hemoglobin 12.9 12.0 - 16.0 g/dl [facility] Hematocrit 39.0 37.0 - 47.0 % [facility] Mean Corpuscular Volume 90.1 80.0 - 98.0 fL [facility] Mean Corpuscular Hemoglobin 29.8 27.0 - 33.0 pg [facility] Mean Corpuscular HGB Conc 33.1 31.0 - 35.0 g/dl [facility] Red Cell Distribution Width 11.9 11.0 - 16.0 % [facility] Platelet Count 225 160 - 400 X10*3/uL [facility] Mean Platelet Volume 12.0 9.4 - 12.3 fL [facility] Neutrophils Percent Auto 67.1 45 - 73 % [facility] Imm Gran Pct Auto 0.1 0.0 - 0.4 % [facility] Lymphocytes Percent Auto 25.4 20 - 40 % [facility] Monocytes Percent Auto 6.3 2 - 11 % [facility] Eosinophils Percent Auto 0.3 0 - 4 % [facility] Basophils Percent Auto 0.8 0 - 2 % [facility] NRBC Pct Auto 0.0 0.0 - 0.2 /100WBC [facility] Neutrophils Absolute Auto 5.1 2.0 - 8.3 x10*3/uL [facility] Imm Gran Abs Auto 0.01 0.00 - 0.03 X10*3/uL [facility] Lymphocytes Absolute Auto 1.9 1.2 - 4.9 X10*3/uL [facility] Monocytes Absolute Auto 0.5 0.1 - 1.2 X10*3/uL [facility] Eosinophils Absolute Auto 0.0 0.0 - 0.4 X10*3/uL [facility] Basophils Absolute Auto 0.1 0.0 - 0.2 X10*3/uL [facility] NRBC Abs Auto 0.000 0.0 - 0.012 X10*3/uL [facility] Blood Venous blood specimen / Unknown 05/12/2024 11:24 AM EST 05/12/2024 1:41 PM EST Anna Castro MD LAB BLOOD ORDERABLES Final Result Performing Organization Address [facility] Co de Phone Number [facility] [address] [place] [phone] * Hepatitis C Antibody with Reflex to HCV, RNA, Quantitative, Real-Time PCR (05/12/2024 11:24 AM EST) Hepatitis C Antibody Nonreactive Nonreactive [facility] Comment:Antibodies to HCV no t detected; does not exclude early acuteHCV infection. Blood Venous blood specimen / Unknown 05/12/2024 11:24 AM EST 05/12/2024 2:31 PM EST Anna Castro MD LAB BLOOD ORDERABLES Final Result Performing Organization Address [facility] Phone Number [facility] [address] [place] [phone] * HIV-1/2 Antigen and Antibodies, Fourth Generation, with Reflexes (05/12/2024 11:24 AM EST) Pathologist [facility] [place] HIV AB/AG Nonreactive Nonreactive [facility] Comment:HIV-1 p24 Ag and/or HIV-1/HIV-2 Ab not detected.A test result that is nonreactive does not exclude thepossibility of exposure to or infection with HIV-1 and/orHIV-2. Nonreactive results in this assay for individualswith prior exposure to HIV-1 and/or HIV-2 may be due toantigen and antibody levels that are below the limit ofdetection of this assay.The [employer] Home Pro HIV Ag/Ab Combo assay result andsupplemental assay results should be interpreted inconjunction with the patient's clinical presentation,history and other laboratory results. If the results areinconsistent with clinical evidence, additional testing issuggested to confirm the result. Blood Venous blood specimen / Unknown 05/12/2024 11:24 AM EST 05/12/2024 2:31 PM EST Anna Castro MD LAB BLOOD ORDERABLES Final Result Performing Organization Address [facility] Co de Phone Number [facility] [address] [place] [phone] * Hemoglobin A1c (05/12/2024 11:24 AM EST) Hemoglobin A1c 5.1 <6.0 % [facility] Comment:Hemoglobin A1C Refer ence Range Adults: 4.8 - 6.0 % Non diabetic: < 6.0 % Goal: < 7.0 %Additional Action Suggested: > 8.0 %Note: Hemoglobin A1c results are invalid for patients with abnormal amounts of HbF. Blood transfusions may impact the HbA1c concentration in the patient sample. Estimated Average Glucose 100 mg/dL [facility] Comment:eAG = Estimated ave rage glucose which is %A1C expressed asaverage glucose, using the formula of the M3D-RinrittPowbwlc Glucose study (ADAG), Diabetes Care, Vol.31,#8,Jan. 2007 Blood Venous blood specimen / Unknown 05/12/2024 11:24 AM EST 05/12/2024 1:41 PM EST Anna Castro MD LAB BLOOD ORDERABLES Final Result Performing Organization Address [facility] Co de Phone Number [facility] [address] [place] [phone] * (ABNORMAL) Vitamin D, 25-Hydroxy, Total, Immunoassay (05/12/2024 11:20 AM EST) Vitamin D 25-OH Total 24.5(L) >30 ng/mL [facility] Comment:Health Based Referen ce Values*< 20 ng/mL Ddjgtothb81-20 ng/mL Insufficient> 30 ng/mL Sufficient*Mana DE LA CRUZ. N Engl J Med. 2007;357:266-280Care must be taken in interpreting Vitamin D results fromdifferent laboratories and methodologies. Published datademonstrated that results from patients undergoinghemodialysis may show a negative bias when tested withvarious automated 25-OH vitamin D assays when compared toLC-MS/MS.When testing samples from patients whose predominant form ofVitamin D is Vitamin D2, such as patients receiving VitaminD2 supplementation, results that are subtherapeutic shouldbe confirmed with another method such as LC-MS/MS. Blood Venous blood specimen / Unknown 05/12/2024 11:20 AM EST 05/12/2024 2:31 PM EST Anna Castro MD LAB BLOOD ORDERABLES Final Result Performing Organization Address [facility] Co de Phone Number [facility] [address] [place] [phone] * TSH with Reflex to Free T4 (05/12/2024 11:20 AM EST) TSH reflex Free T4 3.08 0.32 - 4.0 uIU/mL [facility] Blood Venous blood specimen / Unknown 05/12/2024 11:20 AM EST 05/12/2024 2:31 PM EST us Anna Castro MD LAB BLOOD ORDERABLES Final Result Performing Organization Address [facility] Co de Phone Number [facility] [address] [place] [phone] * Lipid Panel, Standard (05/12/2024 11:20 AM EST) Triglycerides 138 <150 mg/dL [facility] Comment:Desirable Triglyceri de: less than 150 mg/dLBorderline High Triglyceride 150-199 mg/dLHigh Triglyceride: 200-499 mg/dLVery High Triglyceride: greater than or equal to 5OO mg/dL Cholesterol 161 <200 mg/dL [facility] Comment:Desirable Cholestero l: less than 200 mg/dLBorderline High Cholesterol: 200-239 mg/dLHigh Cholesterol: greater than 239 mg/dL LDL Cholesterol Calculated 85 <100 mg/dL [facility] Comment:Desirable LDL: less than 100 mg/dLNear Optimal/Above Optimal LDL: 110- 129 mg/dLBorderline High LDL: 130-159 mg/dLHigh LDL: 160-189 mg/dLVery High LDL: greater than or equal to 190 mg/dL HDL Cholesterol 49 >40 mg/dL [facility] Comment:Desirable HDL: great er than 40 mg/dL Note: This HDL assay may give artificially low results in patients with liver disease. Blood Venous blood specimen / Unknown 05/12/2024 11:20 AM EST 05/12/2024 2:31 PM EST us Anna Castro MD LAB BLOOD ORDERABLES Final Result [facility] [address] [place] [phone] * (ABNORMAL) Comprehensive Metabolic Panel (05/12/2024 11:20 AM EST) Sodium 140 135 - 145 mmol/L [facility] Potassium 3.6 3.3 - 5.1 mmol/L [facility] Chloride 107 96 - 108 mmol/L [facility] Carbon Dioxide 26 22 - 29 mmol/L [facility] Anion Gap 11(L) 12 - 20 [facility] Urea Nitrogen (BUN) 12 9 - 16 mg/dL [facility] Creatinine, Serum 0.71 0.5 - 1.4 mg/dL [facility] Estimated Glomerular Filt Rate >60 [facility] Comment:Chronic Kidney Disea se: Estimated GFR < 60 mL/min/[id number] Kidney Disease: Estimated GFR < 15 mL/min/1.73m2 Glucose 91 60 - 115 mg/dL [facility] Calcium 9.4 8.4 - 10.2 mg/dL [facility] Bilirubin, Total 0.4 0.0 - 1.0 mg/dL [facility] Aspartate Amino Transferase 20 5 - 31 U/L [facility] Alanine Aminotransferase 15 0 - 31 U/L [facility] Total Protein 7.6 6.5 - 8.0 g/dL [facility] Albumin Level 4.2 3.5 - 5.0 g/dL [facility] Alkaline Phosphatase 62 39 - 117 U/L [facility] Blood Venous blood specimen / Unknown 05/12/2024 11:20 AM EST 05/12/2024 2:31 PM EST us Anna Castro MD LAB BLOOD ORDERABLES Final Result Performing Organization Address City/State/[facility] Co de Phone Number [facility] [address] [place] [phone] from Last 3 Months Insurance [facility] [employer] F[employer] Care Teams Incident Engineer Relationship Specialty Start Date End Date Anna No MD [address] [place] [phone] PCP - General Internal Medicine 05/12/24
[2024-08-06 08:22] LABS: Syphilis Screen Nonreactive (Nonreactive)
[2024-08-06 08:47] LABS: HBc Num1 0.14 S/CO (0.00-0.79); HBsAGNum1 0.45 S/CO (0.00-0.99); Hepatitis B Core Antibody Nonreactive (Nonreactive); Hepatitis B Surface Antigen Negative (Negative); ~Hepatitis B Surface Antibody REACTIVE (Nonreactive)
== END 2024-08-05 12:21 | disposition home or self-care (01) ==
LOC: HO.HHCL 12:20
PROVIDERS: PCP Registered Nurse; Visit Provider Advanced Practice Midwife
DX: F41.8 Other specified anxiety disorders (principal); Z11.3 Encounter for screening for infections with a predominantly sexual mode of transmission
CPT/HCPCS: 36415; 80307; 86704; 86706; 86780; 87340

== ENCOUNTER 2024-12-14 12:28 | Outpatient (REF) | payer SELFPAY ==
--- OUTSIDE RECORDS SUMMARY | 2022-12-12 05:30 | XMS_ITS | Continuity of Care Document ---
Author Organization [employer] Address [address] [place] [address] Care Team Providers Care Storeperson Name Role Phone Jenni Cruz Unavailable Unavailable Allergies, Adverse Reactions, Alerts Substance Reaction Status Criticality No Known Allergies Active No Inform ation Medications Medication Instructions Dosage Effective Dates (start - stop) Status Comments One Daily 27 mg iron-800 mcg tablet take 1 tablet by oral route every day 1 tablet - Active Unisom (doxylamine) 25 mg tablet Take 1 tablet q 12 hrs PRN for nausea - Active Vitamin B-6 25 mg tablet Take 1 tab q8 hrs PRN for nause trying to combine times w Unisom - Active Mirena 20 mcg/24 hours (8 yrs) 52 mg intrauterine device inserted 10/2022 () - Active Procedures Procedure Date URINE TEST CARE AFTER DELIVERY CARE AFTER DELIVERY OFFICE/OUTPATIENT VISIT, EST OBSTETRICAL CARE URINALYSIS NONAUTO W/O SCOPE OFFICE/OUTPATIENT VISIT, EST URINALYSIS NONAUTO W/O SCOPE OFFICE/OUTPATIENT VISIT, EST URINALYSIS NONAUTO W/O SCOPE TDAP VACCINE >7 IM ADULT IMMUNIZATION ADMIN, 1ST OFFICE/OUTPATIENT VISIT, EST URINALYSIS NONAUTO W/O SCOPE OFFICE/OUTPATIENT VISIT, EST BLOOD SEROLOGY, QUALITATIVE ROUTINE VENIPUNCTURE HEMATOCRIT HIV-1/HIV-2, SINGLE ASSAY GLUCOSE TEST URINALYSIS NONAUTO W/O SCOPE OFFICE/OUTPATIENT VISIT, EST URINALYSIS NONAUTO W/O SCOPE OFFICE/OUTPATIENT VISIT, EST URINALYSIS NONAUTO W/O SCOPE OFFICE/OUTPATIENT VISIT, EST AFP, Serum, Open Spins Bifida BLOOD CLOT INHIBITOR ANTIGEN ROUTINE VENIPUNCTURE URINALYSIS NONAUTO W/O SCOPE OFFICE/OUTPATIENT VISIT, EST CBC With Differential/ Platelet 022 ABO Grouping And Rho(D) Thyping ( Typing & Screen) Antibody Screen HBsAgScreen (Hep Bsurface Atigen) RPR, RfX QN RPR/ Confirm TP HIV Screen Varicella-Zoster V Ab, IgG Hgb Frac. W/O Solubility Hb Electro Or S kill Cell HCV Antibody RFX To Quant PCR 2 Rubella Antibodies, IgG OB US NUCHAL MALISSA, FIRST TRIMESTER SINGL E COMPLETE CBC W/AUTO DIFF WBC ROUTINE VENIPUNCTURE HEPATITIS B SURFACE AG, EIA HEMATOCRIT HEMOGLOBIN CHROMOTOGRAPHY MUMPS ANTIBODY VARICELLA-ZOSTER ANTIBODY HIV-1/HIV-2, SINGLE ASSAY RBC ANTIBODY SCREEN BLOOD TYPING, ABO BLOOD SEROLOGY, QUALITATIVE URINE TEST URINALYSIS NONAUTO W/O SCOPE Antibody Screen ABO Grouping And Rho(D) Thyping ( Typing & Screen) HBsAgScreen (Hep Bsurface Atigen) Urine Culture, Routine RPR, RfX QN RPR/ Confirm TP CBC, Platelet; No Diferential 2 HIV Test Varicella-Zoster V Ab, IgG Hgb Frac. W/O Solubility Hb Electro Or S kill Cell Rubella Antibodies, IgG Pap IG, Ct-Ng OB US NUCHAL MALISSA, FIRST TRIMESTER SINGL E URINE CULTURE/COLONY COUNT N.GONORRHOEAE, DNA, AMP PROB Intake URINE TEST OFFICE/OUTPATIENT VISIT, [facility] Advance Directives Directive Yes / No Effective Date File Name No Information Encounters Encounter Description Practice Location Reason(s) For Visit Diagnoses Date Provider Providers Copied on Encounter [facility], [address] [place], [id number], [place] [facility] check (chief complaint) Encounter for test, result negativeIUD (intrauterine device) in placeEncounter for visitSVD (spontaneous vaginal delivery) 3 Mp Arteaga. [address] [facility], [place], [id number], [place]. tel:[phone] OFFICE/OUTPA TIENT VISIT, EST [facility], [address] [place], [id number], [place] [facility] IUD CHECK (chief complaint) Encounter for routine checking of intrauterine contraceptive device (IUD) 3 Dilia Ellis. [address] [facility], [place], [id number], [place]. tel:[phone] [facility], [address], [place], [id number], [place] [facility] Inpt No Information 3 Radha Vicente. [address] [facility], [place], [id number], [place]. tel:[phone] OFFICE/OUTPA TIENT VISIT, [facility], [address], [place], [id number], [place] [facility] Encounter for supervision of normal first , third trimester 3 Mp Arteaga. [address] [facility], [place], [id number], [place]. tel:[phone] OFFICE/OUTPA TIENT VISIT, [facility], [address], [place], [id number], [place] [facility] routine (chief complaint) Encounter for supervision of normal first , third trimesterEncount er for other contraceptive management 3 Mp Arteaga. [address] [facility], [place], [id number], [place]. tel:[phone] OFFICE/OUTPA TIENT VISIT, [facility], [address], [place], [id number], [place] [facility] routine (chief complaint) Encounter for immunizationEnco unter for supervision of normal first , third trimester 3 Dilia Ellis. [address] [facility], [place], [id number], [place]. tel:[phone] OFFICE/OUTPA TIENT VISIT, [facility], [address], [place], [id number], [place] [facility] care in third trimesterEncount er for supervision of normal , unspecified, second trimester Mar-2 3 Tawanna Aguilar. [address] [facility], [place], [id number], [place]. tel:[phone] OFFICE/OUTPA TIENT VISIT, [facility], [address], [place], [place], [id number], [place] [facility] routine (chief complaint) Encounter for supervision of normal first , unspecified trimesterPrenata l care in second trimester 3 Nida Montanez. [address] [facility], [facility] [address], [place], [place], [id number], [place]. tel:[phone] OFFICE/OUTPA TIENT VISIT, [facility], [address], [place], [place], [phone], [place] [facility] routine (chief complaint) Encounter for supervision of normal first , unspecified trimester 3 Nida Montanez. [address] [facility], [place] [address], [place], [id number], [place]. tel:[phone] OFFICE/OUTPA TIENT VISIT, [facility], [address], [place], [id number], [place] [facility] Encounter for supervision of normal first , unspecified trimester 3 Tawanna Aguilar. [address] [facility], [place], [id number], [place]. tel:[phone] OFFICE/OUTPA TIENT VISIT, [facility], [address], [place], [id number], [place] [facility] care, first trimester 2 Tawanna Aguilar. [address] [facility], [place], [id number], [place]. tel:[phone] [facility], [address], [place], [id number], [place] [facility] New Ob Initial Visit (chief complaint) Encounter for test, result positiveEncounte r for supervision of normal first in first trimester 2 Jered Mcqueen. [address] [facility], [place], [address], [place]. tel:[phone] OFFICE/OUTPA TIENT VISIT, [facility], [address] [place] [address], [place], [id number], [place] [facility] Adult test (chief complaint) Encounter for test, result positive 2 Dipti Castillo. [address] [facility], [place], [id number], [place]. 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 Percentile Wt./[place]. Percentile BMI percentile Pulse Ox Inhaled Ox 10:41 AM 63.39 in 62.233 kg (137.20 lbs) 24.0 1 kg/m eter (2) 123/70 mm[Hg] Chief Complaint And Reason For Visit From encounter dated '12/12/2022 09:30'. check (chief complaint). Description: The client has no feeding complications or nursingdifficulties. A depression screening was completed. The client has no history of domestic violence or gestational diabetes. The client has not resumed sexual activity or work. Additional In formation: ; s/p 10/21/21; baby girl 6 lb 11oz; both breast and bottle feedingbaby well, pt well, she denies depressions/p Mirena placement @ [facility] UTD and WNL. Reason For Referral Reason For Referral No Information Plan Of Treatment Date Type Action Status Goal Depression scree flaquito. Due on due Goal Tdap due Goal HIV Consented. Due on due Goal Hepatitis C anti body. 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 Due on due Goal Hepatitis C scre ening. Due on due Goal Unhealthy drug u se screening. Due on due Goal HIV Screen. Due on due Goal PAP. Due on due Goal HPV (). Due on due Goal Influenza Vaccin e. Due on due Goal PAP. Due on due Goal Hepatitis C anti body. Due on due Goal Depression scree flaquito. Due on due Goal Tdap due Goal HIV Consented. Due on due Goal Hepatitis C scre ening. 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 Due on due Goal HPV (1st). Due on due Goal Unhealthy drug u se screening. Due on due Goal HIV Screen. Due on due Goal HIV Screen. Due on due Goal Unhealthy drug u se screening. Due on due Goal Tdap due Goal HPV (1st). Due on due Goal HIV Consented. Due on due Goal Hepatitis C scre ening. Due on due Goal Hepatitis C anti body. 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 Due on due Goal PAP. Due on due Goal Depression scree flaquito. Due on due Goal Depression scree flaquito. Due on due Goal HIV Consented. Due on due Goal Hepatitis C anti body. 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 Due on due Goal PAP. Due on due Goal Hepatitis C scre ening. Due on due Goal Tdap due Goal Unhealthy drug u se screening. Due on due Goal HIV Screen. Due on due Goal HPV (). Due on due Goal Depression scree flaquito. Due on due Goal HIV Consented. Due on due Goal Unhealthy drug u se screening. Due on due Goal HPV (1st). 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 Due on due Goal Hepatitis C scre ening. Due on due Goal Tdap due Goal PAP. Due on due Goal Hepatitis C anti body. Due on due Goal HIV Screen. Due on due Goal Hepatitis C anti body. Due on due Goal HIV Screen. Due on due Goal Hepatitis C scre ening. Due on due Goal Unhealthy drug u se screening. 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 Due on due Goal Depression scree flaquito. Due on due Goal Tdap. Due on due Goal HIV Consented. Due on due Goal HPV (). Due on due Goal PAP. Due on due Goal Hepatitis C anti body. Due on due Goal HIV Consented. Due on due Goal Tdap. Due on due Goal Depression scree flaquito. 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 Due on due Goal PAP. Due on due Goal Unhealthy drug u se screening. Due on due Goal HPV (). Due on due Goal HIV Screen. Due on due Goal Hepatitis C scre ening. Due on due Goal Hepatitis C anti body. Due on due Goal HIV Screen. Due on due Goal HIV Consented. Due on due Goal HPV (). 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 Due on due Goal Depression scree flaquito. Due on due Goal Tdap. Due on due Goal PAP. Due on due Goal Hepatitis C scre ening. Due on due Goal Unhealthy drug u se screening. Due on due Goal Colonoscopy. Due on 023 due Goal Unhealthy drug u se screening. Due on due Goal Tdap. Due on due Goal HPV (). Due on due Goal FOBT. Due on due Goal HIV Consented. Due on due Goal Hepatitis C scre ening. Due on due Goal FIT-DNA. Due on due Goal FIT. Due on due Goal HIV Screen. Due on due Goal CT-Colonography. Due on due Goal Depression scree flaquito. Due on due Goal PAP. 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 Due on due Goal Colonoscopy. Due on 022 due Goal FIT. Due on due Goal PAP. Due on due Goal HPV (). Due on due Goal FIT-DNA. Due on due Goal Depression scree flaquito. Due on due Goal Hepatitis C scre ening. Due on due Goal Tdap. Due on due Goal CT-Colonography. Due on due Goal FOBT. Due on due Goal HIV Screen. Due on due Goal HIV Consented. Due on due Goal Unhealthy drug u se screening. Due on due Goal Colonoscopy. Due on due Goal Depression scree flaquito. Due on due Goal HIV Consented. Due on due Goal FOBT. Due on due Goal Unhealthy drug u se screening. Due on due Goal FIT-DNA. 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 Due on due Goal HPV (). Due on due Goal Tdap. Due on due Goal CT-Colonography. Due on due Goal FIT. Due on due Goal PAP. Due on due Goal Hepatitis C scre ening. Due on due Goal PAP. Due on due Goal HIV Consented. Due on due Goal FIT-DNA. Due on due Goal FOBT. Due on due Goal Tdap. Due on due Goal HPV (1st). Due on due Goal Unhealthy drug u se screening. Due on due Goal Influenza Vaccin e. Due on due Goal Hepatitis C scre ening. 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 Due on due Goal Depression scree flaquito. Due on due Goal Colonoscopy. Due on [address]-Colonography. Due on due Goal FIT. Due on due Goal HIV Screen. Due on due Referral Ordered: OB US > OR = TO 14 WKS, SNGL FETUS ordered Referral Ordered: OB US NUCHAL MALISSA, FIRST TRIMESTER SINGLE ordered Patient Education Learning About Pregnanc y completed Future Order: Radiology Order OB US > OR = TO 14 WKS, SNGL FETUS ([id number]), Added on: New Future Order: Lab Order Panorama Test (NPT), Collected on: , Sent on: Sent Future Order: Radiology Order OB US NUCHAL MALISSA, FIRST TRIMESTER SINGLE ([id number]), Added on: New Future Order: Radiology Order OB US NUCHAL MALISSA, FIRST TRIMESTER SINGLE ([id number]), Added on: New Future Order: Lab Order Antibody Screen ([id number]), Appointment on: , Sent on: Sent Future Order: Lab Order Type and Screen ([id number]), Appointment on: , Sent on: Sent Future Order: Lab Order Hep B Simpson rface Ag ([id number]), Appointment on: , Sent on: Sent Future Order: Lab Order RPR, Rfx Qn RPR/Confirm TP-PA ([id number]), Appointment on: , Sent on: Sent Future Order: Lab Order CBC ([id number]), Appointment on: , Sent on: Sent Future Order: Lab Order HIV Scre en ([id number]), Appointment on: , Sent on: Sent Future Order: Lab Order Varicell a-Zoster Ab, IgG ([id number]), Appointment on: , Sent on: Sent Future Order: Lab Order HGB Elec trophoresis ([id number]), Appointment on: , Sent on: Sent Future Order: Lab Order Rubella Immunity ([id number]), Appointment on: , Sent on: Sent History Of Present Illness Encounter Date Complaint History Of Prese nt Illness check The client has no feeding complications or nursing difficulties. A depression screening was completed. The client has no history of domestic violence or gestational diabetes. The client has not resumed sexual activity or work. Additional Information: ; s/p 10/21/21; baby girl 6 lb 11oz; both breast and bottle feedingbaby well, pt well, she denies depressions/p Mirena placement @ [facility] U[facility] and WNL. IUD CHECK 10/21/2022, d magyng well. No complications w/ delivery. Had Mirena placed PP. Requesting for strings to be trimmed. routine routine routine routine New Ob Initial Visit test LMP was 02/09/20 22. Client was not taking control pills at or around the time of her LMP. Context: not confirmed by testing. This is first . Pertinent negatives include nausea, spotting, urinary difficulty, vaginal discharge, vomiting. Functional Status Date Functional Assessmen t Pain Score 0/10 Instructions Date Instruction Additional Infor mag denies PMH, no meds, not on contraceptionstart vitaminsdo not forget to drink water and restGYN appointment Related to Encounter for test, result positive Assessments Type Assessment Date assessment Encounter for test, re sult negative assessment IUD (intrauterine device) in mat ce assessment Encounter for visit J assessment (spontaneous vaginal deliver y) Mental Status Date Cognitive Assessment Orientation - [place] ed to time, place, person, situation. Patient Care Teams Name Effective Dates (start - stop) Status Members No Information
--- OUTSIDE RECORDS SUMMARY | 2024-12-15 13:13 | XMS_ITS | Encounter Summary ---
Author Organization [employer] Address [address] [place] [address] Care Team Providers Care Intramural Director Name Role Phone Anna No MD Primary Care Provide r Reason for Visit * Reason Onset Date Comments Nurse Triage 11/09/2024 Encounter Details Date Type Department Care Team ([facility] st Contact Info) Description 11/09/[address] [facility] MEDICINE [address] [place] [address] Anna No MD [address] [place] [address] Nurse Triage Social History Tobacco Use Types Packs/Day Years [...] encounter Miscellaneous Notes * Telephone Encounter - Carol Silva RN - 11/09/2024 9:33 AM EDT Triage call with [facility] [place] [id number] Pt reports mild vaginal bleeding since 11/07/24. Pt reports abdominal pain for 2 days. Pt has had IUD placed 2 years ago and isn't sure if there is . Pt reports using 3-4 pads/day , less thanthat at times. Pt describes bleeding as minimal with itchiness. Pt is advised to come to [facility] for provider to see Pt. Pt agrees with this disposition. Insurance is verified as active . Multiple (2) protocols were used on this call. Disposition for Call: See in Office or Video Visit Today Protocol Used: Vaginal Bleeding - Abnormal (Adult) Protocol-Based Disposition: See in Office or Video Visit Today Video visit not offered Positive Triage Question: * Patient wants to be seen * All higher-acuity triage questions were negative Care Advice Discussed: * Irregular Bleeding and You Are Using a Hormonal IUD (such as Mirena) * Reasons To Call Back - Irregular bleeding occurs more than 2 cycles (2 months) - Bleeding becomes worse - You become worse Protocol Used: Contraception - IUD Symptoms and Questions (Adult) Protocol-Based Disposition: See in Office or Video Visit Today or Tomorrow Positive Triage Question: * Moderate abdominal pain (e.g., does not interfere with normal activities) that comes and goes (cramps) and present > 24 hours (Exception: Pain with vomiting or diarrhea - see that protocol.) * All higher-acuity triage questions were negative Care Advice Discussed: * Intrauterine Device (IUD) - FAQs * Telephone Encounter - Dayanara Ronquillo - 11/09/2024 8:45 AM EDT Symptom: Vaginal Bleeding - Not Outcome: Schedule an appointment to be seen within 24 hours Reason: Caller denied all higher acuity questions The caller accepted this outcome. [phone] gibraltarian documented in this encounter Plan of Treatment Upcoming Encounters Date Type Department Care Team (Late st Contact Info) Description 12/30/2024 11:15 AM EDT Office Visit [facility] MEDICINE [address] [place] [address] Anna No MD [address] [place] [address] documented as of this encounter Visit Diagnoses Not on filedocumented in this encounter Additional Health Concerns Assessment Noted Time PHQ-9 Depression Total Score: 10 025 12:15 PM EST documented as of this encounter Care Teams Intramural Director Relationship Specialty Start Date End Date Anna No MD [address] [place] [address] PCP - General Internal Medicine 05/12/24 documented as of this encounter
[2024-12-15 14:32] LABS: Bacterial Vaginosis PCR NEGATIVE (Negative); Candida Group PCR DETECTED (Not Detect); Candida glab krusei PCR NOT DETECTED (Not Detect); Trichomonas vaginalis PCR NOT DETECTED (Not Detect)
[2024-12-15 15:05] LABS: CT PCR NOT DETECTED (Not Detect.); NG PCR NOT DETECTED (Not Detect.)
== END 2024-12-14 12:29 | disposition home or self-care (01) ==
LOC: HO.HHCLNP 12:28
PROVIDERS: Visit Provider Internal Medicine
DX: N89.8 Other specified noninflammatory disorders of vagina (principal)
CPT/HCPCS: 81515; 87491; 87591

== ENCOUNTER 2024-12-15 13:18 | Outpatient (REF) | payer MEDICAID, SELFPAY ==
[2024-12-16 03:33] LABS: HBS Num1 56.10 mIU/mL (0-7.99); HBc Num1 0.08 S/CO (0.00-0.79); HBsAGNum1 0.37 S/CO (0.00-0.99); HIV Num 1 0.05 S/CO (0.00-0.99); Hepatitis A Antibody IgM 0.23 Index (0-0.79); Hepatitis B Surface Antigen Negative (Negative); ~HepC Num1 0.19 S/CO (0.00-0.79); ~Hepatitis A Antibody IgM Nonreactive (Nonreactive); ~Hepatitis B Surface Antibody REACTIVE (Nonreactive); ~Hepatitis C Antibody Nonreactive (Nonreactive)
== END 2024-12-15 13:19 | disposition home or self-care (01) ==
LOC: HO.HHCL 13:18
PROVIDERS: PCP Internal Medicine; Visit Provider Internal Medicine
DX: N89.8 Other specified noninflammatory disorders of vagina (principal)
CPT/HCPCS: 36415; 86592; 86704; 86706; 86709; 86803; 87340; 87389

== ENCOUNTER 2025-04-27 15:36 | Outpatient (REF) | payer MEDICAID, SELFPAY ==
[2025-04-27 18:53] LABS: Alanine Aminotransferase 15 U/L (0-31); Albumin Level 4.7 g/dL (3.5-5.0); Alkaline Phosphatase 74 U/L (39-117); Anion Gap 11 (12-20); Aspartate Amino Transferase 21 U/L (5-31); Blood Urea Nitrogen 13 mg/dL (9-16); Calcium 9.3 mg/dL (8.4-10.2); Carbon Dioxide 28 mmol/L (22-29); Chloride 106 mmol/L (96-108); Estimated Glomerular Filt Rate 55; Potassium 4.1 mmol/L (3.3-5.1); Sodium 141 mmol/L (135-145); Total Protein 8.0 g/dL (6.5-8.0)
== END 2025-04-27 15:37 | disposition home or self-care (01) ==
LOC: HO.HHCL 15:36
PROVIDERS: PCP Internal Medicine; Visit Provider Internal Medicine
DX: M25.473 Effusion, unspecified ankle (principal)
CPT/HCPCS: 36415; 80053